=== PATIENT | male | born 1940 | race Caucasian/White ===

== ENCOUNTER 2018-11-08 13:52 | Inpatient (IN) ==
[2018-11-08 14:30] LABS: BASOPHILS # (AUTO) 0.02 10*3/UL; BASOPHILS % (AUTO) 0.2 % (0-1); EOSINOPHILS % (AUTO) 0.8 % (0-8); Hematocrit [HCT] 38.6 % (42.0-52.0); Hemoglobin [HGB] 11.6 g/dL (14.0-18.0); LYMPHOCYTES # (AUTO) 1.56 10*3/uL; MEAN CORPUSCULAR HEMOGLOBIN 29.5 PG (27-31); MEAN CORPUSCULAR HGB CONC 30.1 g/dL (33-37); MEAN CORPUSCULAR VOLUME 98.2 FL (80-90); MEAN PLATELET VOLUME 11.7 FL (7.4-12.2); MONOCYTES % (AUTO) 11.2 % (5-15); NEUTROPHILS # (AUTO) 9.38 10*3/UL; NEUTROPHILS % (AUTO) 75.1 % (50-80); RED BLOOD COUNT 3.93 10^6/uL (4.70-6.10)
[2018-11-08 14:34] LABS: BLOOD UREA NITROGEN 64 mg/dL (7-22); SERUM ALBUMIN 4.2 g/dL (3.5-4.8)
[2018-11-08 14:47] LABS: PLATELET MORPHOLOGY COMMENT NORMAL MORPHOLOGY (NORM); RBC MORPHOLOGY COMMENT SEE COMMENTS (NORM); WBC MORPHOLOGY COMMENT NORMAL MORPHOLOGY (NORM)
--- NOTE | 2018-11-08 15:57 | DI ---
CT HEAD SCAN WITHOUT IV CONTRAST, 11/08/2018 2:22 PM : Clinical History: Trauma. The patient is unable to hold still. Previous Exam: 07/31/2018. Technique: Scanned from the foramen magnum to vertex without IV contrast. Sagittal and coronal reform atted images generated. This was done is a 1 seconds volume acquisition because of patient motion. Th ere is still motion on the scans. Contrast Volume: None. 4th Ventricle: Normal. 3rd Ventricle: Mildly dilated, but normal for age. Lateral Ventricles: Mildly dilated, but normal for age. Sella: Normal size and normal pituitary gland. Cerebrum: There is no evidence of an acute intracranial hemorrhagic focus. There is no evidence of an acute bland infarct. There is no obvious small vessel ischemic disease. Cerebellum: Normal. No cerebellopontine angle mass. Normal cerebellar tonsillar position. Brainstem: Normal. Atrophy: Moderate cerebellar and cerebral atrophy. Extracerebral Mantles/Midline Shift: No extracerebral mantle or dural lesion. No midline shift. Sinuses: Since the previous study, the patient has developed mucosal thickening of the left maxillary sinus. Skull: Intact. There is prominence of the left mendosal suture but this was also visible on the previ ous study and has not changed. READIN. There is no evidence of an acute intracranial hemorrhagic focus. No acute bland infarct or signif icant small vessel ischemic disease noted. 2. Moderate cerebellar and cerebral atrophy. 3. There are motion artifacts even though the entire scan was performed in 1 second. Extremely small collection of subarachnoid blood could be missed. If the patient's clinical status declines, then a repeat scan would be recommended.
--- NOTE | 2018-11-08 17:26 | DI ---
LUMBAR SPINE SERIES, 11/08/2018 2:23 PM: Clinical History: Fall. Back pain. Previous Exam: None at this facility. Views: AP and lateral views are submitted. Comment: Due to the large body habitus of this patient, significant detail is lacking. Vertebral Bodies: Normal height and size. No compression fractures. However, subtle fractures such as in the transverse processes, could be missed. Disc Spaces: Disc space narrowing present at every lumbar level. Alignment: Normal. Pedicles: Normal. Apophyseal Joints: Normal apophyseal joints. SI Joints: Normal. Bone Density: Appears osteoporotic. Additional Findings: Status post ORIF of a left hip fracture. Readin. Technically limited study because of the patient's large body habitus. 2. No compression fractures are identified. The transverse processes are not visualized. 3. Status post ORIF of a left hip fracture.
--- NOTE | 2018-11-08 17:34 | DI ---
AP PELVIS and BILATERAL HIPS, 11/08/2018 2:22 PM : Clinical History: Injury. Trauma. The patient fell. Previous Exam: 07/31/2018. Hip Views: AP and frog lateral. AP Pelvis: Soft Tissues: Normal. Bony Pelvis: Intact. Sacrum and SI Joints: Normal. Symphysis Pubis: Normal. Bilateral Hips: Femoral Head/Neck Junctions: Status post ORIF of a fracture of the left femoral neck. The fracture amanda cency is still visible toward the lesser trochanter. No fracture of the right hip is seen although fi ne detail is lacking because of the patient's large body habitus. Acetabula: Non-dysplastic. No acetabular overcoverage. No retroversion. Hip Joint Spaces: Normal left hip joint space. There is narrowing superiorly in the right hip. Readin. Technically difficult examination due to the patient's large body habitus. Fine detail is lacking . 2. The pelvis is intact. 3. No definite fracture of the right hip is seen but there is joint space narrowing superiorly. Cons ider followup with a CT scan of the pelvis and hips if the patient has continued symptoms. 4. Status post ORIF of the fracture of the left hip. A fracture lucency is still visible toward the site of the lesser trochanter.
--- NOTE | 2018-11-08 18:56 | PDOC ---
HPI - History of Present Illness History of Present Illness: Very nice 78-year-old gentleman who resides at [facility] apparently according to the staff he was transferring from the walker to the chair and fell did not lose consciousness as per the ER doc plating of some pain in his hips and back and therefore was sent to the ER he has an indwelling Cisneros catheter Cisneros catheter for the last 3 years. He is back to his usual for according to his which is at the bedside and stated that after his hip fracture a started to get less and less mobile and weaker. He will be admitted for hydration and hopefully her reversal of his acute kidney injuries which is compared to last labs Past Medical History Tobacco Use: Former Smoker In the Past 12 Months, Have Used or Abuse Any of the Following Substance: None Medication / Allergies Home Medications: Home Medications Medication Instructions Recorded Confirmed acetazolamide ER 500 mg 500 mg PO BID #60 cap 05/20/18 11/08/18 capsule,extended release allopurinol 300 mg tablet 300 mg PO QDAY #90 tab 05/20/18 11/08/18 atorvastatin 10 mg tablet 10 mg PO QDAY #90 tab 05/20/18 11/08/18 escitalopram 10 mg tablet 10 mg PO QDAY #90 tab 05/20/18 11/08/18 levothyroxine 75 mcg capsule 75 mcg PO QDAY #90 cap 05/20/18 11/08/18 omeprazole 20 mg capsule,delayed 20 mg PO QDAY #90 cap 05/20/18 11/08/18 release Oxybutynin Chloride 5 mg PO DAILY 07/31/18 11/08/18 acetaminophen 325 mg capsule 650 mg PO Q4H PRN #1 cap 10/12/18 11/08/18 ascorbic acid (vitamin C) 500 mg 500 mg PO .QD #1 cap 10/12/18 11/08/18 capsule aspirin 81 mg tablet,delayed 81 mg PO QDAY #1 tab 10/12/18 11/08/18 release calcitriol 0.25 mcg capsule 0.25 mcg PO 3XW #1 cap 10/12/18 11/08/18 calcium carbonate-vitamin D3 600 1 cap PO QAM #1 cap 10/12/18 11/08/18 mg (1,500 mg)-400 unit capsule guaifenesin 400 mg tablet 800 mg PO BID #1 tab 10/12/18 11/08/18 insulin detemir (U-100) 100 5 unit SUBCUT QAM #3 ml 10/12/18 11/08/18 unit/mL (3 mL) subcutaneous pen oxycodone 10 mg tablet 10 mg PO Q6H PRN #1 tab 10/12/18 11/08/18 polyethylene glycol 3350 17 17 g PO QDAY #119 g 10/12/18 11/08/18 gram/dose oral powder sennosides 8.6 mg tablet 8.6 mg PO BID PRN #1 tab 10/12/18 11/08/18 trazodone 100 mg tablet 100 mg PO QHS #90 tab 10/12/18 11/08/18 bisacodyl 10 mg rectal suppository 10 mg SC ONCE PRN 10/18/18 11/08/18 bumetanide 2 mg tablet 2 mg PO BID tab 10/18/18 11/08/18 ferrous sulfate 325 mg (65 mg 325 mg PO QDAY tab 10/18/18 11/08/18 iron) tablet,delayed release lorazepam 0.5 mg tablet 0.5 mg PO BID tab 10/18/18 11/08/18 magnesium hydroxide 2,400 mg/10 mL 30 ml PO QHS PRN ml 10/18/18 11/08/18 oral suspension ondansetron HCl 4 mg tablet 4 mg PO Q4H PRN tab 10/18/18 11/08/18 potassium chloride ER 20 mEq 20 meq PO BID tab 10/18/18 11/08/18 tablet,extended release sodium phosphates 19 gram-7 118 ml SC ONCE PRN 10/18/18 11/08/18 gram/118 mL enema Spironolactone 50 mg PO BID 11/08/18 11/08/18 Allergies/Adverse Reactions: Allergies Allergy/AdvReac Type Severity Reaction Status Date / Time No Known Allergies Allergy Verified 10/18/18 09:53 Review of Systems - Review of Systems All Systems: Reviewed & No Additional Complaints Except as Stated - Respiratory Respiratory: DENIES: Negative System Review, Cough, Sputum, Dyspnea At Rest, Dyspnea with Exertion, Pleuritic Pain, Hemoptysis, Wheezing, Other, See HPI - Gastrointestinal Gastrointestinal / Abdominal: DENIES: Negative System Review, Nausea, Vomiting, Diarrhea, Constipation, Abdominal Pain, Bloody Stool, Poor Appetite, Heartburn, Regurgitation, Bloating, Lactose Intolerance, Melena, Bright Red Blood per Rectum, Other, See HPI Exam - Vitals Vital Signs: Vital Signs Temperature 96.4 F Temperature Source Temporal Artery Scan Pulse Rate [Pulse Oximeter 69 Right] Respiratory Rate 22 Blood Pressure [Left Arm] 107/55 Pulse Ox 88 Oxygen Delivery Method Room Air Height 5 ft 9 in Weight 245 lb - General General Appearance: No Acute Distress, Cooperative - Head Head Exam: Normal Inspection, Normocephalic, Atraumatic - Eye Eye Exam: POSITIVE: Normal Appearance, PERRL, EOMI, No Scleral Icterus - Respiratory Respiratory Exam: POSITIVE: Clear to Auscultation - Bilaterally, Breathing Non Labored, Normal To Percussion, Normal to Percussion and Palpation - Cardiovascular Cardiovascular Exam: POSITIVE: RRR, No Murmur, No Clicks, No Gallops, No Rubs, PMI Non-Displaced - GI/Abdominal GI/Abdominal Exam: POSITIVE: Normal Bowel Sounds, Non Tender, Non Distended, Soft, No Masses, No Hepatomegaly, No Splenomegaly, No Organomegaly - Extremities Extremities Exam: POSITIVE: No Clubbing Present, No Cyanosis Present, +1 Edema - Neurological Neurological Exam: POSITIVE: Alert, Moves All Extremities Equally Results - Labs CBC and BMP: 11/08/18 13:44 11/08/18 13:44 Assessment and Plan - Patient Problems (1) Chronic kidney disease Current Visit: No Status: Chronic Comment: Normal saline 75 hour we'll hold all nephrotoxic drugs ultrasound of his kidneys in a.m. Code(s): N18.9 - Chronic kidney disease, unspecified Qualifiers: (2) Dehydration Current Visit: Yes Status: Acute Code(s): E86.0 - Dehydration
--- NOTE | 2018-11-08 19:28 | PDOC ---
General Adult HPI - General Chief Complaint: Fall Stated Complaint: fall Date Seen by Provider: 11/08/18 Time Seen by Provider: 14:05 Source: POSITIVE: Patient, Spouse, RN/MD (From [facility]), EMS, custodial records, Old records Exam Limitations: POSITIVE: No limitations Nurse's Notes Reviewed & Considered: Yes EMS Report Reviewed & Considered: Verbal - History of Present Illness Initial Comment: The patient is a 78-year-old male from the [facility] halfway. The patient is on the regular halfway home floor; why he states that he does have some "early dementia. According to halfway staff, the patient was probably attempting to transfer himself from his walker to a chair and he fell. He was found by his roommate on his back. No observed loss of consciousness. custodial staff reports that he was complaining of pain to his hips, lower back and head. Patient may have struck the back of his head on the floor when he fell. states that the patient has an indwelling Baldwin catheter for urinary incontinence. History of diabetes mellitus, insulin-d ependent. states that the patient is presently in his usual state of mentation, and that he has been less active ever since he had a left hip fracture repaired in July 2018. custodial staff states that he is able to ambulate with a walker with assistance, but that he is essentially is bed and chair bound. custodial staff and report no fevers or chills. No vomiting or diarrhea. No focal sensory or motor changes. He has a DO NOT RESUSCITATE status. Have you received a tetanus shot in the past 10 years?: Unknown Body Location Affected: REPORTS: Head, Back, Other (Bilateral hip discomfort) Timing: REPORTS: Abrupt Duration: 1 hour Severity: Moderate Quality: REPORTS: "Pain" (Patient states that he "hurts all over". When asked, he does indicate discomfort in his lower back and posterior hips bilaterally and the back of his head where he might have struck the back of his head on the floor.) Context: REPORTS: Other (Apparently fell while attempting to transfer from walker to chair) Modifying Factors: improves with: Nothing Similar Symptoms Previously: No Recent Care Received: REPORTS: Denies Any Prior Injuries Related to Current Complaint?: No - Patient Home Medications Home Medications: Home Medications acetazolamide ER 500 mg capsule,extended release 500 mg PO BID #60 cap 05/20/18 allopurinol 300 mg tablet 300 mg PO QDAY #90 tab 05/20/18 atorvastatin 10 mg tablet 10 mg PO QDAY #90 tab 05/20/18 escitalopram 10 mg tablet 10 mg PO QDAY #90 tab 05/20/18 levothyroxine 75 mcg capsule 75 mcg PO QDAY #90 cap 05/20/18 omeprazole 20 mg capsule,delayed release 20 mg PO QDAY #90 cap 05/20/18 Oxybutynin Chloride 5 mg PO DAILY 07/31/18 acetaminophen 325 mg capsule 650 mg PO Q4H PRN #1 cap 10/12/18 ascorbic acid (vitamin C) 500 mg capsule 500 mg PO .QD #1 cap 10/12/18 aspirin 81 mg tablet,delayed release 81 mg PO QDAY #1 tab 10/12/18 calcitriol 0.25 mcg capsule 0.25 mcg PO 3XW #1 cap 10/12/18 calcium carbonate-vitamin D3 600 mg (1,500 mg)-400 unit capsule 1 cap PO QAM #1 cap 10/12/18 guaifenesin 400 mg tablet 800 mg PO BID #1 tab 10/12/18 insulin detemir (U-100) 100 unit/mL (3 mL) subcutaneous pen 5 unit SUBCUT QAM #3 ml 10/12/18 oxycodone 10 mg tablet 10 mg PO Q6H PRN #1 tab 10/12/18 polyethylene glycol 3350 17 gram/dose oral powder 17 g PO QDAY #119 g 10/12/18 sennosides 8.6 mg tablet 8.6 mg PO BID PRN #1 tab 10/12/18 trazodone 100 mg tablet 100 mg PO QHS #90 tab 10/12/18 bisacodyl 10 mg rectal suppository 10 mg NE ONCE PRN 10/18/18 bumetanide 2 mg tablet 2 mg PO BID tab 10/18/18 ferrous sulfate 325 mg (65 mg iron) tablet,delayed release 325 mg PO QDAY tab 10/18/18 lorazepam 0.5 mg tablet 0.5 mg PO BID tab 10/18/18 magnesium hydroxide 2,400 mg/10 mL oral suspension 30 ml PO QHS PRN ml 10/18/18 ondansetron HCl 4 mg tablet 4 mg PO Q4H PRN tab 10/18/18 potassium chloride ER 20 mEq tablet,extended release 20 meq PO BID tab 10/18/18 sodium phosphates 19 gram-7 gram/118 mL enema 118 ml NE ONCE PRN 10/18/18 Spironolactone 50 mg PO BID 11/08/18 - Patient Allergies Allergies/Adverse Reactions: Allergies Allergy/AdvReac Type Severity Reaction Status Date / Time No Known Allergies Allergy Verified 10/18/18 09:53 Past Medical History - heen HEENT History: Denies History Cardiovascular History: Hypertension, CHF, Hyperlipidemia, Other (please comment) Additional Cardiovasular History: murmur. unable to assess pt unsure Respiratory History: Home Oxygen Use, Other (please comment) Additional Respiratory History: Hypoxic respiratory failure Gastrointestinal History: GERD, GI Bleed Genitourinary History: Renal Disease, Incontinence, Other (please comment) Additional Genitourinary History: Chronic baldwin cath for overactive bladder and inmobility Endocrine History: Type 2 Diabetes (insulin), Hypothyroidism Musculoskeletal History: Arthritis Prosthesis or Implant: No Neurological History: Denies History Blood Disorders: Anemia Psychiatric History: Depression, Anxiety Disorders History of Sexually Transmitted Diseases: No Male Reproductive History: Denies History Cancer History: Denies History In Past Year Been Physically Harmed or Verbally Threatened: No History of MDRO: No History of Other Communicable Diseases: No Tobacco Use: Former Smoker In the Past 12 Months, Have Used or Abuse Any Substance: None Previous Surgical History: Yes Type / Date of Surgery: Cholecystectomy, hernia repair, ORIF LEFT HIP Significant Family History: Heart disease, Cancer, Diabetes Past Medical History Reviewed: Reviewed - No Changes ROS - Limitations ROS Limitations: Clinical Condition (Patient is a poor historian and states that he has been diagnosed with some dementia. states his mental condition, however, is unchanged from baseline.) Constitution: REPORTS: Denies Symptoms Cardiovascular: REPORTS: Denies Cardiac Symptoms Respiratory: REPORTS: Denies Resp Symptoms Neurological: REPORTS: Denies Neuro Symptoms Gastrointestinal: REPORTS: Denies GI Symptoms Endocrine: REPORTS: Denies Symptoms Musculoskeletal: REPORTS: Back Pain, Joint Pain (Hips) Genitourinary: REPORTS: Denies Symptoms Eyes: REPORTS: Denies Symptoms ENT: REPORTS: Denies Symptoms Skin: REPORTS: Rash (2 inguinal and scrotal area) Lympathic: REPORTS: Denies Lympathic Symptoms Immunologic: POSITIVE: Denies Symptoms Psychiatric: POSITIVE: Denies Psych Symptoms General Adult Exam - General Appearance General Appearance: POSITIVE: Cooperative, No Acute Distress. NEGATIVE: Alert (Patient is a poor historian. Not able to definitively localize any discomfort. Not oriented to date.), No Evidence of Trauma - HEENT HEENT: POSITIVE: Head Inspection Nml, Eyes Inspection Nml, Ears Inspection Nml, Nose Inspection Nml, Oral/Dental Inspect. Nml, Pharynx Inspect. Nml, PERRL, EOMI - Pupils Pupil Size: 3 mm: Bilateral (PERRLA) - Neck Neck: POSITIVE: Normal Inspection, Thyroid Normal - Respiratory Respiratory: POSITIVE: No Respiratory Distress, Breath Sounds Normal, Chest Non- Tender - Cardiovascular Cardiovascular: POSITIVE: Regular Rate & Rhythm, No Murmur, No Gallop, PMI Normal Peripheral Pulses: Radial (R): 2+, Radial (L): 2+, Dorsalis-pedis (R): 2+, Dorsalis-pedis (L): 2+ - Abdomen Abdomen: Soft: (All Quadrants), Normal Bowel Sounds: (All Quadrants), Denies Tenderness: (All Quadrants), No Splenomegaly: (All Quadrants), No Hepatomegaly: (All Quadrants), No Guarding: (All Quadrants), No Rebound: (All Quadrants), No Palpable Pulse: (All Quadrants), No Palpabale Mass: (All Quadrants), No D istention: (All Quadrants), No Rigidity: (All Quadrants) - Back Back: POSITIVE: Lumbosacral Tenderness (Complains of some discomfort on firm palpation lumbosacral area) - Skin Skin: POSITIVE: No Rash (Inguinal area) - Extremities Extremity: Non-Tender: (RUE), (LUE), Normal ROM: (All Extremities), Normal Inspection: (RUE), (LUE), Pelvis Stable: (All Extremities), Normal Tendon Exam: (All Extremities) Additional Extremities Details: Extremity examination is normal except patient does complain of some discomfort on firm palpation both hips, especially posteriorly. Range of motion passively is intact, but patient does complain of some discomfort with passive hip flexion bilaterally. There is no shortening or rotation of any of the extremities. - Neurological / Psychological Neurological: POSITIVE: Affect Apporpriate, sql programmer Normal As Tested, Motor Normal, Sensation Normal, Disoriented To Time. NEGATIVE: Oriented X3 (Not oriented to date) Reflexes: Patellar (R): 2+, Patellar (L): 2+ Images - Complete Complete: 1 - Area of described discomfort 2 - Area of described discomfort 3 - Complains of some localized scalp discomfort when asked General Adult Progress - Results Reviewed by me Xrays/CTs/US Reviewed by me: Yes Discussed with Radiologist: Yes Radiology Findings: CT scan of head without contrast shows no acute changes. X- ray of both hips shows that patient has had a hip pinning on the left; no acute fracture seen. X-ray of the lumbosacral spine shows no acute changes. Lab Results Reviewed by Me: Yes (BUN 64/creatinine 2.5; on 10/21/2018 BUN was 25/creatinine 1.4) Lab Results:: Laboratory Results 11/08/18 11/08/18 13:44 13:44 WBC 12.49 H RBC 3.93 L Hgb 11.6 L Hct 38.6 L MCV 98.2 H MCH 29.5 MCHC 30.1 L RDW Std Deviation 72.6 H RDW Coeff of Gigi 20.4 H Plt Count 196 MPV 11.7 Immature Gran % (Auto) 0.2 Neut % (Auto) 75.1 Lymph % (Auto) 12.5 Gila % (Auto) 11.2 Eos % (Auto) 0.8 Baso % (Auto) 0.2 Immature Gran # (Auto) 0.03 Neut # (Auto) 9.38 Lymph # (Auto) 1.56 Gila # (Auto) 1.40 H Eos # (Auto) 0.10 Baso # (Auto) 0.02 WBC Morphology Comment Normal morphology Plt Morphology Comment Normal morphology RBC Morph Comment See comments Sodium 142 Potassium 4.6 Chloride 96 L Carbon Dioxide 27 Anion Gap 19 BUN 64 H Creatinine 2.5 H Estimated GFR Rn Heart BUN/Creatinine Ratio 25.60 H Glucose 122 H Calculated Osmolality 312.0 H Calcium 10.2 Total Bilirubin 1.5 H AST 27 ALT < 6 L Alkaline Phosphatase 103 Total Creatine Kinase < 20 L Total Protein 8.3 H Albumin 4.2 Globulin 4.1 Albumin/Globulin Ratio 1.00 L CBC and BMP: 11/08/18 13:44 11/08/18 13:44 - Patient's Progress Pain Medication Addressed: POSITIVE: Not Applicable School/Work Release Addressed: POSITIVE: Not Applicable Re-Examine Time: 17:30 Re-Examine Comment: Patient resting comfortably. Results of radiologic and laboratory studies discussed with patient and with the [facility]. Patient is dehydrated and has prerenal azotemia. Hydrated with a liter of normal saline while in the emergency room. Case was discussed with Dr. Montalvo, hospitalist, and patient is admitted for hydration and further evaluation and treatment. Status: POSITIVE: Unchanged, Re-Examined Antibiotics Given: No - Consult Consult (If Yes, Name of Consulting MD & Time Called): Yes (Dr. Montalvo, hospitalist, [id number]) Consulting MD will see pt:: POSITIVE: In ED, [facility] [place] Admit Counseled: POSITIVE: Patient, Family, RE: Lab Results, RE: Radiology Results, RE: DX, RE: Need for F/U Patient Care Time - Estimated PCT Patient Care Time (In Minutes): 55 Vital Signs - Recent Vital Signs Vital Signs: Vital Signs (Last 8 hours) Temp Pulse Resp BP Pulse Ox 11/08/18 13:52 96.4 F L 69 22 107/55 88 - VS Reviewed Vital Signs Reviewed: Yes Discharge Clinical Impression: Dehydration, Renal failure, acute Discharge Disposition: Admit to Inpatient Condition: Fair Patient Problem(s) Reviewed: Yes Patient Instructions Given at Discharge: Laceration (ED) Follow Up With: NONE,NONE [Primary Care Provider] - Date Decision to Admit to Inpatient: 11/08/18 Time Decision to Admit to Inpatient: 17:30
[2018-11-08] MEDS ORDERED: LIDOCAINE HCL 2 % 10 ML JELLY URO-JECT TOPICAL PRN (21:19)
[2018-11-08] MEDS ORDERED: ACETAMINOPHEN 325 MG TABLET PO PRN ×2 (21:19)
[2018-11-08] MEDS ORDERED: DOCUSATE 100 MG CAPSULE PO PRN (21:19)
[2018-11-08] MEDS ORDERED: CALCIUM CARBONATE 500 MG (TUMS) CHEWABLE TABLET PO PRN (21:19)
[2018-11-08] MEDS ORDERED: LIDOCAINE W/ SODIUM BICARB 0.5 ML SYR SUBD PRN (21:19)
[2018-11-08] MEDS ORDERED: MORPHINE SULFATE 2 MG/1 ML IVP PRN (21:19)
[2018-11-08] MEDS ORDERED: ONDANSETRON 4 MG/2 ML VIAL IVP PRN (21:19)
[2018-11-08] MEDS ORDERED: HEPARIN 5000 UNIT/1 ML SUBCUT SCH (21:30)
[2018-11-08] MEDS: OXYBUTYNIN CHLORIDE 5 MG PO SCH (22:31)
[2018-11-08] MEDS: AcetaZOLAMIDE Tab 250 MG TABLET PO SCH (22:35)
[2018-11-08] MEDS: Sodium Chloride 0.9% 1,000 ML IV SCH (22:35)
[2018-11-08] MEDS: LORazepam 1 MG TABLET PO SCH (22:35)
[2018-11-08] MEDS ORDERED: ASPIRIN 325 MG TABLET PO ONE (23:39)
[2018-11-09] MEDS: Heparin Drip 25,000 UNIT/500 ML BAG IV SCH (00:42)
[2018-11-09 04:33] LABS: BASOPHILS # (AUTO) 0.02 10*3/UL; BASOPHILS % (AUTO) 0.2 % (0-1); EOSINOPHILS # (AUTO) 0.17 10*3/UL; EOSINOPHILS % (AUTO) 1.5 % (0-8); Hematocrit [HCT] 36.8 % (42.0-52.0); Hemoglobin [HGB] 10.6 g/dL (14.0-18.0); LYMPHOCYTES # (AUTO) 1.48 10*3/uL; MEAN CORPUSCULAR HGB CONC 28.8 g/dL (33-37); MEAN CORPUSCULAR VOLUME 100.8 FL (80-90); MONOCYTES # (AUTO) 1.27 10*3/UL (0.3-0.8); MONOCYTES % (AUTO) 11.5 % (5-15); NEUTROPHILS # (AUTO) 8.03 10*3/UL; RED BLOOD COUNT 3.65 10^6/uL (4.70-6.10)
[2018-11-09 04:40] LABS: BLOOD UREA NITROGEN 62 mg/dL (7-22); SERUM ALBUMIN 3.5 g/dL (3.5-4.8)
[2018-11-09] MEDS: LEVOTHYROXINE 75 MCG TABLET PO SCH (04:44)
[2018-11-09 04:54] LABS: PLATELET MORPHOLOGY COMMENT NORMAL MORPHOLOGY (NORM); RBC MORPHOLOGY COMMENT SEE COMMENTS (NORM); WBC MORPHOLOGY COMMENT NORMAL MORPHOLOGY (NORM)
[2018-11-09] MEDS: ASPIRIN EC 81 MG TABLET PO SCH (09:10)
[2018-11-09] MEDS: LORazepam 1 MG TABLET PO SCH ×2 (09:10→20:31)
[2018-11-09] MEDS: AcetaZOLAMIDE Tab 250 MG TABLET PO SCH ×2 (09:10→20:31)
[2018-11-09] MEDS: ESCITALOPRAM 10 MG TABLET PO SCH (09:10)
[2018-11-09] MEDS: oxyCODONE IR Tab 5 MG TAB PO PRN (09:11)
[2018-11-09] MEDS: Oxybutynin ER Tab 5 MG TAB PO SCH (09:28)
[2018-11-09] MEDS: OXYBUTYNIN CHLORIDE 5 MG PO SCH (10:23)
--- NOTE | 2018-11-09 10:33 | PDOC(PROG) ---
Interval History: Patient is comfortable in no chest pain nausea vomiting Objective : Data - Labs CBC and BMP: 11/09/18 04:12 11/09/18 04:12 Objective : Exam - General General Appearance: Cooperative - Respiratory Respiratory Exam: Clear to Auscultation - Bilaterally, Breathing Non Labored, Normal To Percussion, Normal to Percussion and Palpation - Cardiovascular Cardiovascular Exam: RRR, No Murmur, No Clicks, No Gallops, No Rubs, PMI Non-Di splaced - GI/Abdominal GI/Abdominal Exam: Normal Bowel Sounds, Non Tender, Non Distended, Soft, No Masses, No Hepatomegaly, No Splenomegaly, No Organomegaly - Extremities Extremities Exam: +1 Edema Assessment and Plan - Patient Problems (1) Non-STEMI (non-ST elevated myocardial infarction) Current Visit: Yes Status: Acute Comment: Elevated troponins discussed with and patient not interested in catheter or going to [place] would like treated medically. Plus with his creatinine that would probably put the patient on dialysis. We will treat with 72 hours of heparin drip we cannot use Lovenox in this patient because of his renal failure and we will add the beta melissa and shirin if blood pressure tolerates at this point the 80s cannot be used because in acute renal failure Code(s): I21.4 - Non-ST elevation (NSTEMI) myocardial infarction (2) Chronic kidney disease Current Visit: No Status: Chronic Comment: Mild hydration creatinine and is better down to 2 BUN is down 2 points as well we'll continue normal saline at 75 an hour hold all nephrotoxic drugs Code(s): N18.9 - Chronic kidney disease, unspecified Qualifiers: (3) Dehydration Current Visit: Yes Status: Acute Comment: Continue normal saline 75 an hour Code(s): E86.0 - Dehydration
[2018-11-09] MEDS: Sodium Chloride 0.9% 1,000 ML IV SCH ×2 (11:10→23:41)
--- NOTE | 2018-11-09 15:11 | DI ---
BILATERAL RENAL ULTRASOUND, 11/09/2018 7:00 AM: Clinical History: Acute kidney injury. Previous Exam: None at this facility. Technique: Scans are performed through both kidneys in multiple projections. Renal Size: Right Kidney: Cannot be measured. Due to bowel gas, right kidney not visualized. Left Kidney: 121 mm. Renal Mass: Normal left kidney. Renal Perfusion: Normal perfusion to left kidney. Hydronephrosis: No hydronephrosis in left kidney. Hydroureter: No left hydroureter. Bladder: Appearance: Normal. Ureteral Jets: Neither ureteral jet visualized. Pre Void Volume: 180 mL. Post Void Volume: Patient did not void. Readin. Normal left kidney. The bladder is normal. The patient did not void. 2. The right kidney is not visualized due to bowel gas and body habitus.
[2018-11-10] MEDS: LEVOTHYROXINE 75 MCG TABLET PO SCH (05:01)
[2018-11-10 06:05] LABS: BLOOD UREA NITROGEN 55 mg/dL (7-22); BUN/CREATININE RATIO 34.37 (6-20); SERUM ALBUMIN 3.2 g/dL (3.5-4.8)
[2018-11-10] MEDS: AcetaZOLAMIDE Tab 250 MG TABLET PO SCH ×2 (08:52→20:18)
[2018-11-10] MEDS: ESCITALOPRAM 10 MG TABLET PO SCH (08:52)
[2018-11-10] MEDS: LORazepam 1 MG TABLET PO SCH ×2 (08:52→20:18)
[2018-11-10] MEDS: ASPIRIN EC 81 MG TABLET PO SCH (08:52)
[2018-11-10] MEDS: Oxybutynin ER Tab 5 MG TAB PO SCH (08:52)
--- NOTE | 2018-11-10 09:57 | PDOC(PROG) ---
Interval History: He is feeling much more lively today he is smiling and talking more I told him that his BUN and creatinine are even and improved in the morning yesterday. Denies chest pain nausea vomiting Objective : Data - Labs CBC and BMP: 11/09/18 04:12 11/10/18 05:48 Objective : Exam - Respiratory Respiratory Exam: Clear to Auscultation - Bilaterally, Breathing Non Labored, Normal To Percussion, Normal to Percussion and Palpation - Cardiovascular Cardiovascular Exam: RRR, Systolic Murmur - GI/Abdominal GI/Abdominal Exam: Normal Bowel Sounds, Non Tender, Non Distended, Soft, No Masses, No Hepatomegaly, No Splenomegaly, No Organomegaly - Extremities Extremities Exam: No Clubbing Present, No Edema Present, No Cyanosis Present Assessment and Plan - Patient Problems (1) Non-STEMI (non-ST elevated myocardial infarction) Current Visit: Yes Status: Acute Comment: Continue heparin drip for a total 72 hours once his creatinine is improved he can maybe start an Ramon and beta blockers if blood pressure is improving. Again visited with the patient did only wanted medical therapy or other tests done Code(s): I21.4 - Non-ST elevation (NSTEMI) myocardial infarction (2) Chronic kidney disease Current Visit: No Status: Chronic Comment: Continue hydration hopefully get his kidneys even better [facility] Code(s): N18.9 - Chronic kidney disease, unspecified Qualifiers: (3) Dehydration Current Visit: Yes Status: Acute Comment: Continue IV fluids Code(s): E86.0 - Dehydration
[2018-11-10] MEDS: Sodium Chloride 0.9% 1,000 ML IV SCH (12:31)
[2018-11-10] MEDS: CALCITRIOL 0.25 MCG CAPSULE PO SCH (15:11)
[2018-11-11] MEDS: Sodium Chloride 0.9% 1,000 ML IV SCH ×3 (01:47→19:15)
[2018-11-11] MEDS: LEVOTHYROXINE 75 MCG TABLET PO SCH (04:40)
[2018-11-11 05:40] LABS: BASOPHILS # (AUTO) 0.01 10*3/UL; BASOPHILS % (AUTO) 0.1 % (0-1); EOSINOPHILS # (AUTO) 0.18 10*3/UL; EOSINOPHILS % (AUTO) 2.3 % (0-8); Hematocrit [HCT] 32.3 % (42.0-52.0); Hemoglobin [HGB] 9.3 g/dL (14.0-18.0); LYMPHOCYTES # (AUTO) 1.16 10*3/uL; MEAN CORPUSCULAR HEMOGLOBIN 29.6 PG (27-31); MEAN CORPUSCULAR HGB CONC 28.8 g/dL (33-37); MEAN CORPUSCULAR VOLUME 102.9 FL (80-90); MEAN PLATELET VOLUME 10.7 FL (7.4-12.2); MONOCYTES # (AUTO) 1.02 10*3/UL (0.3-0.8); MONOCYTES % (AUTO) 13.2 % (5-15); NEUTROPHILS # (AUTO) 5.32 10*3/UL; NEUTROPHILS % (AUTO) 69.2 % (50-80); RED BLOOD COUNT 3.14 10^6/uL (4.70-6.10)
[2018-11-11 05:50] LABS: PLATELET MORPHOLOGY COMMENT NORMAL MORPHOLOGY (NORM); RBC MORPHOLOGY COMMENT SEE COMMENTS (NORM); WBC MORPHOLOGY COMMENT NORMAL MORPHOLOGY (NORM)
[2018-11-11 05:51] LABS: BLOOD UREA NITROGEN 49 mg/dL (7-22); BUN/CREATININE RATIO 37.69 (6-20)
[2018-11-11] MEDS: AcetaZOLAMIDE Tab 250 MG TABLET PO SCH ×2 (07:59→20:28)
[2018-11-11] MEDS: LORazepam 1 MG TABLET PO SCH ×3 (07:59→21:00)
[2018-11-11] MEDS: Oxybutynin ER Tab 5 MG TAB PO SCH (08:00)
[2018-11-11] MEDS: ASPIRIN EC 81 MG TABLET PO SCH (08:00)
[2018-11-11] MEDS: ESCITALOPRAM 10 MG TABLET PO SCH (08:00)
[2018-11-11] MEDS: Heparin Drip 25,000 UNIT/500 ML BAG IV SCH (10:04)
--- NOTE | 2018-11-11 13:38 | PDOC(PROG) ---
Date of Service: 11/11/18 Time of Service: 13:30 Interval History: Subjective Patient is denying complaint, He was laying in bed does not appear in distress. Apparently he fell at the [facility] care and that's why he ended up here in the hospital. The patient is denying chest pain, shortness of breath or nausea. Objective : Data - Labs CBC and BMP: 11/11/18 05:40 11/11/18 05:40 Objective : Exam - General General Appearance: No Acute Distress, Cooperative, Morbidly Obese - Head Head Exam: Normal Inspection - Eye Eye Exam: Normal Appearance - ENT ENT Exam: Normal Exam - Neck Neck Exam: Normal Inspection - Respiratory Respiratory Exam: Clear to Auscultation - Bilaterally - Cardiovascular Cardiovascular Exam: Systolic Murmur - GI/Abdominal GI/Abdominal Exam: Normal Bowel Sounds, Non Tender, Non Distended, Soft, No Organomegaly - Rectal Rectal Exam: Deferred - External Exam: Deferred - Extremities Extremities Exam: Normal Inspection - Back Back Exam: Normal Inspection - Neurological Neurological Exam: Alert, CN II-XII Intact, No Facial Droop, Speech Intact / Clear, Moves All Extremities Equally Additional Neurological Exam Details: Patient could not tell me the day or the month or the year. he could not tell me where exactly where he is. - Psychiatric Psychiatric Exam: Normal Affect - Integumentary Integumentary Exam: Normal Color Assessment and Plan - Patient Problems (1) Dehydration Current Visit: Yes Status: Acute Comment: I think acute renal failure is probably secondary to diuretic this was stopped it is improving I think we'll cut back on his fluid. Likely back to the senior care tomorrow Code(s): E86.0 - Dehydration (2) Non-STEMI (non-ST elevated myocardial infarction) Current Visit: Yes Status: Acute Comment: He denied chest pain, shortness of breath or nausea. Elevated troponin may be secondary to the acute on chronic renal failure. He may have had acute coronary syndrome though as he has a history of diabetes. The plan was for him to continue heparin for 3 days I think we'll continue the same plan. Continue with aspirin. I'm not sure he can tolerate additional medication. Will see what's his blood pressure numbers tomorrow then will decide if he can tolerate additional medication. Code(s): I21.4 - Non-ST elevation (NSTEMI) myocardial infarction (3) Diabetes 1.5, managed as type 2 Current Visit: No Status: Chronic Comment: He was on levimer at the [facility] but only 5 units, blood sugar seems to be acceptable will watch. Code(s): E13.9 - Other specified diabetes mellitus without complications (4) Hypothyroidism (acquired) Current Visit: No Status: Chronic Comment: same med. Code(s): E03.9 - Hypothyroidism, unspecified
[2018-11-11] MEDS: oxyCODONE IR Tab 5 MG TAB PO PRN (20:30)
[2018-11-11] MEDS ORDERED: ATORVASTATIN 10 MG TABLET PO SCH (21:00)
[2018-11-12] MEDS: LEVOTHYROXINE 75 MCG TABLET PO SCH (04:59)
[2018-11-12 06:53] LABS: BLOOD UREA NITROGEN 38 mg/dL (7-22)
--- NOTE | 2018-11-12 07:38 | DCSUMMARY ---
Hospitalization Summary Admit Date: 11/08/2018 Discharge Date: 11/12/18 Hospital Course: Discharge diagnoses 1. Acute renal failure improved 2. History of diabetes 3. History of hyperlipidemia 4. History of depression 5. History of hypothyroidism 6. History of congestive heart failure 7. History of anemia 8. History of urinary incontinence has a permanent catheter 9. Mildly elevated troponin question secondary to congestive heart failure or non-ST DE 10. Likely dementia Hospital course This is 78 years old male with medical history significant for history of diabetes, history of congestive heart failure on diuretics, hypothyroidism, depression and likely dementia, has a permanent Cisneros catheter who apparently fell at the sn[facility] and was brought to the hospital for evaluation. Evaluation was negative for new fractures but it that was found that he has acute renal failure and hence the admission. He was admitted to the hospital by Dr. Montalvo please see his note. His troponin was minimally elevated Dr. Montalvo put him on heparin for possibility of NSTMI. Patient however did not have chest pain and no shortness of breath. The case also was discussed with the family they did not want intervention only medical treatment so he was treated medically. I saw him later on during his hospital stay he was denying complaint but I noticed that he has dementia. He could not tolerate beta melissa or lisinopril because of bradycardia and the presence of renal failure. on the day of discharge creatinine improved he was denying symptoms in terms of chest or shortness of breath. we thought That he could be discharged back to the [facility]. I did modify his diuretic treatment that he was on before admission. I did cut back on the spirinolactone to 50 mg once a day from 50 mg twice a day. We discontinued the bumetanide. I did speak with Dr. Moscoso to let him know about changes. Patient did have an echocardiogram however I don't have the results. Discharge instruction Diet regular Activity as tolerated medication please see snf discharge orders Condition at discharge was stable for discharge Exam - Vitals Vital Signs: Vital Signs Temperature 98.2 F Temperature Source Oral Pulse Rate [Apical] 72 Pulse Rate [Pulse Oximeter 58 Right] Pulse Rate 57 Respiratory Rate 18 Blood Pressure [Right Arm] 119/55 Blood Pressure [Left Arm] 107/48 Blood Pressure 115/50 Pulse Ox 92 Oxygen Flow Rate 1 Oxygen Delivery Method Nasal Cannula Height 5 ft 9 in Weight 247 lb 1.6 oz - General General Appearance: No Acute Distress, Cooperative, Obese - Head Head Exam: Normal Inspection, Atraumatic - Eye Eye Exam: POSITIVE: Normal Appearance - ENT ENT Exam: POSITIVE: Normal Exam - Neck Neck Exam: Normal Inspection - Respiratory Respiratory Exam: POSITIVE: Clear to Auscultation - Bilaterally - Cardiovascular Cardiovascular Exam: POSITIVE: RRR - GI/Abdominal GI/Abdominal Exam: POSITIVE: Normal Bowel Sounds, Non Tender, Non Distended, Soft, No Organomegaly - Rectal Rectal Exam: POSITIVE: Deferred - External Exam: POSITIVE: Deferred - Extremities Additional Extremities Exam Details: No edema with his chronic dermatitic changes present. - Back Back Exam: POSITIVE: Normal Inspection - Neurological Additional Neurological Exam Details: He does not know the day of the month or the year. He doesn't know why he is in the hospital. - Psychiatric Psychiatric Exam: POSITIVE: Normal Affect - Integumentary Integumentary Exam: POSITIVE: Normal Color Patient Problems - Patient Problem List (1) Dehydration Status: Acute Code(s): E86.0 - Dehydration Category: Medical (2) Non-STEMI (non-ST elevated myocardial infarction) Status: Acute Code(s): I21.4 - Non-ST elevation (NSTEMI) myocardial infarction Category: Medical (3) Diabetes 1.5, managed as type 2 Status: Chronic Comment: Continue at present with Levemir 18 units QHS. Will ask Home Health for blood sugar review and education of to management of blood sugar testing Code(s): E13.9 - Other specified diabetes mellitus without complications Category: Medical (4) Hypothyroidism (acquired) Status: Chronic Code(s): E03.9 - Hypothyroidism, unspecified Category: Medical
[2018-11-12] MEDS: ESCITALOPRAM 10 MG TABLET PO SCH (08:53)
[2018-11-12] MEDS: ASPIRIN EC 81 MG TABLET PO SCH (08:54)
[2018-11-12] MEDS: AcetaZOLAMIDE Tab 250 MG TABLET PO SCH (08:54)
[2018-11-12] MEDS: LORazepam 1 MG TABLET PO SCH (08:54)
[2018-11-12] MEDS ORDERED: ALLOPURINOL 300 MG TABLET PO SCH (09:00)
[2018-11-12] MEDS ORDERED: OMEPRAZOLE 20 MG CAPSULE PO SCH (09:00)
[2018-11-12] MEDS: Oxybutynin ER Tab 5 MG TAB PO SCH (10:43)
[2018-11-12 12:27] VITALS: BP 128/53; RESP 16; TEMP 98.4; O2SAT 96
[2018-11-12] MEDS: CALCITRIOL 0.25 MCG CAPSULE PO SCH (13:50)
[2018-11-12] MEDS: oxyCODONE IR Tab 5 MG TAB PO PRN (13:54)
--- NOTE | 2018-11-12 15:07 | EKG ---
[address] [address] Measurements Intervals [place] Rate: 71 P: 88 ND: 318 QRS: 56 QRSD: 142 T: -5 QT: 433 QTc: 455 Interpretive Statements SINUS RHYTHM WITH FIRST DEGREE AV BLOCK RIGHT BUNDLE BRANCH BLOCK PROBABLE ANTERIOR MYOCARDIAL INFARCTION OF INDETERMINATE AGE Compared to ECG 07/31/2018 05:22:16 First degree AV block now present Right bundle-branch block now present Myocardial infarct finding now present Electronically Signed On 11-15-18 18:17:12 MDT by Kirk Bucio [email or web address]
== END 2018-11-12 14:13 | DRG 682 ==
LOC: ER 13:52 → MED/SURG 20:07
PROVIDERS: ADMIT Internal Medicine; ATTEND Internal Medicine

== ENCOUNTER 2018-12-01 13:42 | Inpatient (IN) ==
[2018-12-01] MEDS ORDERED: Sodium Chloride 0.9% 1,000 ML PRIMARY IV ONE (13:59)
[2018-12-01 14:21] LABS: VENOUS PH 7.4 (7.32-7.42)
--- NOTE | 2018-12-01 14:21 | EKG ---
[address] [address] Measurements Intervals [place] Rate: 75 P: -88 HI: 234 QRS: 67 QRSD: 134 T: -5 QT: 412 QTc: 441 Interpretive Statements ECTOPIC ATRIAL RHYTHM WITH FIRST DEGREE AV BLOCK WITH OCCASIONAL VENTRICULAR PREMATURE COMPLEXES INDETERMINATE AXIS RIGHT BUNDLE BRANCH BLOCK ANTERIOR- LATERAL MYOCARDIAL INFARCTION PROBABLY OLD Compared to ECG 11/08/2018 23:37:17 Ectopic atrial rhythm now present Ventricular premature complex(es) now present Indeterminate axis now present Sinus rhythm no longer present Myocardial infarct finding still present Electronically Signed On 12-01-18 15:38:04 MDT by Kirk Bucio [email or web address]
[2018-12-01 14:31] LABS: BASOPHILS # (AUTO) 0.03 10*3/UL; BASOPHILS % (AUTO) 0.3 % (0-1); EOSINOPHILS # (AUTO) 0.09 10*3/UL; EOSINOPHILS % (AUTO) 0.8 % (0-8); Hemoglobin [HGB] 12.5 g/dL (14.0-18.0); LYMPHOCYTES # (AUTO) 1.38 10*3/uL; MEAN CORPUSCULAR HEMOGLOBIN 29.1 PG (27-31); MEAN CORPUSCULAR HGB CONC 29.8 g/dL (33-37); MEAN CORPUSCULAR VOLUME 97.9 FL (80-90); MEAN PLATELET VOLUME 11.6 FL (7.4-12.2); MONOCYTES # (AUTO) 1.05 10*3/UL (0.3-0.8); MONOCYTES % (AUTO) 9.7 % (5-15); NEUTROPHILS # (AUTO) 8.27 10*3/UL; NEUTROPHILS % (AUTO) 76.2 % (50-80); RED BLOOD COUNT 4.29 10^6/uL (4.70-6.10)
[2018-12-01 14:33] LABS: PLATELET MORPHOLOGY COMMENT NORMAL MORPHOLOGY (NORM); RBC MORPHOLOGY COMMENT NORMAL MORPHOLOGY (NORM); WBC MORPHOLOGY COMMENT NORMAL MORPHOLOGY (NORM)
--- NOTE | 2018-12-01 14:36 | PDOC ---
General Adult HPI - General Chief Complaint: Genitourinary Complaint Stated Complaint: blood in urine Date Seen by Provider: 12/01/18 Time Seen by Provider: 13:55 Source: POSITIVE: intermediate records, Other (Family member) Exam Limitations: POSITIVE: No limitations Nurse's Notes Reviewed & Considered: Yes - History of Present Illness Initial Comment: The patient is a 78-year-old male who is brought to the emergency department from the [facility] with complaints of blood in his urine, increased lethargy and confusion. The patient does have a chronic indwelling urinary catheter and has had previous urinary tract infections off and on over the past year. For the past several days he has had increased blood in the catheter bag. In addition he has had decreased oral intake, increased combativeness and confusion at the half-way. Urinalysis sent here earlier today shows greater than 100 WBCs, greater than 100 RBCs and many bacteria. Culture is pending. Previous culture from October grew out Pseudomonas as well as Serratia marcescens. The patient does have underlying dementia making direct questioning difficult. Information is gathered from half-way records and his family member who accompanies him here to the emergency department. Have you received a tetanus shot in the past 10 years?: Unknown - Patient Home Medications Home Medications: Home Medications acetazolamide ER 500 mg capsule,extended release 500 mg PO BID #60 cap 05/20/18 allopurinol 300 mg tablet 300 mg PO QDAY #90 tab 05/20/18 atorvastatin 10 mg tablet 10 mg PO QDAY #90 tab 05/20/18 escitalopram 10 mg tablet 10 mg PO QDAY #90 tab 05/20/18 levothyroxine 75 mcg capsule 75 mcg PO QDAY #90 cap 05/20/18 omeprazole 20 mg capsule,delayed release 20 mg PO QDAY #90 cap 05/20/18 Oxybutynin Chloride 5 mg PO DAILY 07/31/18 acetaminophen 325 mg capsule 650 mg PO Q4H PRN #1 cap 10/12/18 ascorbic acid (vitamin C) 500 mg capsule 500 mg PO .QD #1 cap 10/12/18 aspirin 81 mg tablet,delayed release 81 mg PO QDAY #1 tab 10/12/18 calcitriol 0.25 mcg capsule 0.25 mcg PO 3XW #1 cap 10/12/18 calcium carbonate-vitamin D3 600 mg (1,500 mg)-400 unit capsule 1 cap PO QAM #1 cap 10/12/18 guaifenesin 400 mg tablet 800 mg PO BID #1 tab 10/12/18 insulin detemir (U-100) 100 unit/mL (3 mL) subcutaneous pen 5 unit SUBCUT QAM #3 ml 10/12/18 oxycodone 10 mg tablet 10 mg PO Q6H PRN #1 tab 10/12/18 polyethylene glycol 3350 17 gram/dose oral powder 17 g PO QDAY #119 g 10/12/18 sennosides 8.6 mg tablet 8.6 mg PO BID PRN #1 tab 10/12/18 trazodone 100 mg tablet 100 mg PO QHS #90 tab 10/12/18 bisacodyl 10 mg rectal suppository 10 mg [place] ONCE PRN 10/18/18 bumetanide 2 mg tablet 2 mg PO BID tab 10/18/18 ferrous sulfate 325 mg (65 mg iron) tablet,delayed release 325 mg PO QDAY tab 10/18/18 lorazepam 0.5 mg tablet 0.5 mg PO BID tab 10/18/18 magnesium hydroxide 2,400 mg/10 mL oral suspension 30 ml PO QHS PRN ml 10/18/18 ondansetron HCl 4 mg tablet 4 mg PO Q4H PRN tab 10/18/18 potassium chloride ER 20 mEq tablet,extended release 20 meq PO BID tab 10/18/18 sodium phosphates 19 gram-7 gram/118 mL enema 118 ml [place] ONCE PRN 10/18/18 Spironolactone 50 mg PO BID 11/08/18 - Patient Allergies Allergies/Adverse Reactions: Allergies Allergy/AdvReac Type Severity Reaction Status Date / Time No Known Allergies Allergy Verified 12/01/18 13:58 Past Medical History - heen HEENT History: Denies History Cardiovascular History: Hypertension, CHF, Hyperlipidemia, Other (please comment) Additional Cardiovasular History: murmur. unable to assess pt unsure Respiratory History: Home Oxygen Use, Other (please comment) Additional Respiratory History: Hypoxic respiratory failure Gastrointestinal History: GERD, GI Bleed Genitourinary History: Renal Disease, Incontinence, Other (please comment) Additional Genitourinary History: Chronic baldwin cath for overactive bladder and inmobility Endocrine History: Type 2 Diabetes (insulin), Hypothyroidism Musculoskeletal History: Arthritis Prosthesis or Implant: No Neurological History: Denies History Blood Disorders: Anemia Psychiatric History: Depression, Anxiety Disorders History of Sexually Transmitted Diseases: No Cancer History: Denies History In Past Year Been Physically Harmed or Verbally Threatened: No History of MDRO: No History of Other Communicable Diseases: No Tobacco Use: Former Smoker In the Past 12 Months, Have Used or Abuse Any Substance: None Previous Surgical History: Yes Type / Date of Surgery: Cholecystectomy, hernia repair, ORIF LEFT HIP Significant Family History: Heart disease, Cancer, Diabetes Past Medical History Reviewed: Reviewed - No Changes ROS - Limitations ROS Limitations: Other (please comment) (Patient has significant underlying dementia) Constitution: DENIES: Fever Respiratory: DENIES: Cough Non Productive, Cough Productive Gastrointestinal: REPORTS: Other (Decreased appetite). DENIES: Vomitting, Diarrhea Endocrine: REPORTS: Other (More lethargic) Genitourinary: REPORTS: Hematuria (Blood noted in the catheter bag) General Adult Exam - General Appearance General Appearance: POSITIVE: Other (The patient does not appear to be in any acute distress. He does not answer any of the questions that I ask him.) - HEENT HEENT: POSITIVE: Head Inspection Nml, Eyes Inspection Nml, Ears Inspection Nml, Nose Inspection Nml, Pharynx Inspect. Nml, Dry Mucous Membranes - Neck Neck: POSITIVE: Normal Inspection. NEGATIVE: Lymphadenopathy - Respiratory Respiratory: POSITIVE: No Respiratory Distress, Breath Sounds Normal - Cardiovascular Cardiovascular: POSITIVE: Regular Rate & Rhythm, No Murmur Peripheral Pulses: Dorsalis-pedis (R): 2+, Dorsalis-pedis (L): 2+ - Abdomen Abdomen: Soft: (All Quadrants), Denies Tenderness: (All Quadrants), No Distention: (All Quadrants) Additional Abdominal Details: He does have an indwelling urinary catheter, there is a fair amount of blood in the urine - Skin Skin: POSITIVE: Normal Color, No Rash - Extremities Additional Extremities Details: He does have a dressing in place in the right lower extremity, some edema noted in both legs - Neurological / Psychological Neurological: POSITIVE: Other (Difficult to assess an adequate neurological exam) General Adult Progress - Results Reviewed by me Lab Results Reviewed by Me: Yes Lab Results:: Laboratory Results 12/01/18 12/01/18 12/01/18 14:07 14:07 14:07 WBC 10.85 H RBC 4.29 L Hgb 12.5 L Hct 42.0 MCV 97.9 H MCH 29.1 MCHC 29.8 L RDW Std Deviation 65.3 H RDW Coeff of Gigi 18.6 H Plt Count 208 MPV 11.6 Immature Gran % (Auto) 0.3 Neut % (Auto) 76.2 Lymph % (Auto) 12.7 Villalba % (Auto) 9.7 Eos % (Auto) 0.8 Baso % (Auto) 0.3 Immature Gran # (Auto) 0.03 Neut # (Auto) 8.27 Lymph # (Auto) 1.38 Villalba # (Auto) 1.05 H Eos # (Auto) 0.09 Baso # (Auto) 0.03 WBC Morphology Comment Normal morphology Plt Morphology Comment Normal morphology RBC Morph Comment Normal morphology VBG pH VBG pCO2 VBG HCO3 VBG Base Excess Sodium 139 Potassium 4.5 Chloride 100 Carbon Dioxide 23 Anion Gap 16 BUN 63 H Creatinine 2.0 H Estimated GFR [facility] BUN/Creatinine Ratio 31.50 H Glucose 121 H Calculated Osmolality 306.0 H Lactic Acid 1.2 Calcium 10.5 Magnesium 2.9 H Total Bilirubin 0.9 AST 23 ALT < 6 L Alkaline Phosphatase 94 Troponin I C-Reactive Protein 1.1 H NT-Pro-B Natriuret Pep 2280 H Total Protein 7.5 Albumin 4.0 Globulin 3.5 Albumin/Globulin Ratio 1.10 L 12/01/18 12/01/18 14:07 14:14 WBC RBC Hgb Hct MCV MCH MCHC RDW Std Deviation RDW Coeff of Gigi Plt Count MPV Immature Gran % (Auto) Neut % (Auto) Lymph % (Auto) Villalba % (Auto) Eos % (Auto) Baso % (Auto) Immature Gran # (Auto) Neut # (Auto) Lymph # (Auto) Villalba # (Auto) Eos # (Auto) Baso # (Auto) WBC Morphology Comment Plt Morphology Comment RBC Morph Comment VBG pH 7.40 VBG pCO2 39 L VBG HCO3 24 VBG Base Excess -1 Sodium Potassium Chloride Carbon Dioxide Anion Gap BUN Creatinine Estimated GFR BUN/Creatinine Ratio Glucose Calculated Osmolality Lactic Acid Calcium Magnesium Total Bilirubin AST ALT Alkaline Phosphatase Troponin I 0.081 H C-Reactive Protein NT-Pro-B Natriuret Pep Total Protein Albumin Globulin Albumin/Globulin Ratio CBC and BMP: 12/01/18 14:07 12/01/18 14:07 EKG Interpreted/Reviewed By Me:: Yes EKG Interpretation:: POSITIVE: Other (EKG shows normal sinus rhythm with right bundle branch block, occasional PVC, no acute changes) - Patient's Progress MDM / ED Course: Blood cultures and lactate were obtained with initial IV start. His initial venous blood gas reveals a pH of 7.4 with a PCO2 of 38. He did receive a 1 L bolus of normal saline. Urinalysis from earlier today showed greater than 100 RBCs, greater than 100 WBCs and many bacteria and a urine culture is pending. Blood work reveals a mildly elevated white count and CRP. His hemoglobin is 12.5 which is up from his previous hospitalization. BUN is 63 with a creatinine of 2.0. His creatinine upon discharge from the hospital earlier this month was down to 1.0. It was 1.5 one week after his hospitalization. His lactate is normal. His EKG showed a normal sinus rhythm with occasional PVC, right bundle branch block, no acute changes. His troponin did come back slightly elevated at 0.8. His troponin has been persistently elevated and was in the same range during his previous hospitalization. This was thought to be possibly related to his congestive heart failure and renal failure. The patient's had elected not to pursue any invasive evaluation or treatment with the rock star. The remainder of his blood work is essentially unremarkable. After administrations of fluids the patient was somewhat more alert and awake. I did discuss current findings with his who is his primary medical decision maker. I did discuss treatment options and she preferred to have the patient admitted here in the hospital here for IV fluids and IV antibiotics and generalized treatment. She did confirm that the patient's CODE STATUS is DNR/DNI and that she does not think he would be a good candidate for any invasive medical procedures. The patient did receive 2 g of Rocephin IV. I did discuss the patient with Dr. Gill was agreed to admit patient for further care. - Consult Counseled: POSITIVE: Patient, Family, RE: Lab Results, RE: DX Patient Care Time - Estimated PCT Patient Care Time (In Minutes): 30 Vital Signs - Recent Vital Signs Vital Signs: Vital Signs (Last 8 hours) Temp Pulse Resp BP Pulse Ox 12/01/18 14:24 97.4 F 77 18 135/116 90 - VS Reviewed Vital Signs Reviewed: Yes Discharge Clinical Impression: Renal failure, acute on chronic, Dehydration, UTI (urinary tract infection), Elevated troponin, CHF (congestive heart failure), Hematuria, Anemia Discharge Disposition: Admit to Inpatient Condition: Fair Patient Problem(s) Reviewed: Yes Follow Up With: PRAVEEN VICENTE [Primary Care Provider] - Date Decision to Admit to Inpatient: 12/01/18 Time Decision to Admit to Inpatient: 15:35
[2018-12-01] MEDS ORDERED: cefTRIAXone Inj 2 GM in Sodium Chloride 0.9% 100 ML IV ONE (14:42)
[2018-12-01 14:47] LABS: BLOOD UREA NITROGEN 63 mg/dL (7-22)
[2018-12-01] MEDS ORDERED: ACETAMINOPHEN 325 MG TABLET PO PRN (15:33)
[2018-12-01] MEDS ORDERED: ONDANSETRON 4 MG/2 ML VIAL IVP PRN (15:33)
[2018-12-01] MEDS ORDERED: DOCUSATE 100 MG CAPSULE PO PRN (15:33)
[2018-12-01] MEDS ORDERED: CALCIUM CARBONATE 500 MG (TUMS) CHEWABLE TABLET PO PRN (15:33)
[2018-12-01] MEDS ORDERED: LIDOCAINE W/ SODIUM BICARB 0.5 ML SYR SUBD PRN (15:33)
[2018-12-01] MEDS ORDERED: cefTAZidime Inj 2 GM in Sodium Chloride 0.9% 100 ML IV SCH (20:30)
[2018-12-01] MEDS ORDERED: cefTRIAXone Inj 2 GM in Sodium Chloride 0.9% 100 ML IV SCH (20:30)
--- NOTE | 2018-12-01 20:42 | PDOC ---
HPI - History of Present Illness Date of Service: 12/01/18 Time of Service: 20:31 Chief Complaint: Hematuria History of Present Illness: Patient was seen and evaluated earlier, discussed with at bedside. This is a 78-year-old male who has what appears to be advanced dementia who was over from [facility] with gross hematuria. He's had chronic Baldwin catheterization for the last 3 years and only due to incontinence and the patient cannot provide me any information at all about his current condition. He is not oriented to self, place, time, or situation. His provides the history. She is not the best historian and does not understand all of his medical problems. My review of the medical record, notable note, and discussion with the patient's , this is a patient who has had a significant decline in his health over the last 6 months. He had a fall back in July and fractured his left hip, presumably had open reduction and internal fixation in [place], [place], then did rehabilitation work at [facility], and transferred to [facility]. He has been diagnosed with dementia, but the states that the recent diagnosis. He has underlying chronic kidney disease, again has had chronic baldwin catheterization for the past three years. He has medications that suggest renal replacement, though his creatinine in June,, was 1.4. He recently had a UTI due to Pseudomonas. He also recently had a short hospital admission in which he was diagnosed with acute on chronic renal failure. No exacerbating factors with today's presentation could be identified. There was no report of any recent baldwin catheter replacements. No recent traumas or falls reported. I discussed with the patient's how aggressive we should care considering his advanced dementia. With review of his medications, I think we stopped several centrally acting agents, and treated the patient with fluids, and antibiotics on an initial attempt to improve his condition, perhaps we can get a better understanding of his underlying mental status. However I also said that if he does not show marked improvement in the next 48 hours, that treatment of primary symptoms of pain and discomfort with no further treatment for chronic medical issues would also be very appropriate for this patient. He reportedly is not drinking at the [facility] and not eating. He has several decubitus ulcers, stage II in the gluteal region. Present on admission. He also has right lower extremity tibial ulcers that appear clean and do not appear infected currently. His catheter does show gross hematuria present but I do not see any clots. Past Medical History Medical History: 1. chronic kidney disease. 2. dementia. 3. venous stasis ulcers. 4. history of left hip fracture s/p ORIF. 5. HTN. 6. aortic stenosis, mild to moderate. 7. DMII. 8. failure to thrive. 9. reportedly CHF. 10. chronic hypoxemic respiratory failure with 2 LPM oxygen requirement. 11. chronic back pain per the patient's . Surgical History: 1. Hx hernia repair. 2. cholecysectomy. 3. left hip ORIF Pertinent Family History: significant for pancreatic cancer per the patient's . Past Social History: does not currently smoke tobacco or drink alcohol. 42 years. has three healthy biologic children. used to live in [place] with his . Tobacco Use: Former Smoker In the Past 12 Months, Have Used or Abuse Any of the Following Substance: None Alcohol Use: None Medication / Allergies Home Medications: Home Medications Medication Instructions Recorded Confirmed acetazolamide ER 500 mg 500 mg PO BID #60 cap 05/20/18 12/01/18 capsule,extended release allopurinol 300 mg tablet 300 mg PO QDAY #90 tab 05/20/18 12/01/18 atorvastatin 10 mg tablet 10 mg PO QDAY #90 tab 05/20/18 12/01/18 escitalopram 10 mg tablet 10 mg PO QDAY #90 tab 05/20/18 12/01/18 levothyroxine 75 mcg capsule 75 mcg PO QDAY #90 cap 05/20/18 12/01/18 omeprazole 20 mg capsule,delayed 20 mg PO QDAY #90 cap 05/20/18 12/01/18 release Oxybutynin Chloride 5 mg PO DAILY 07/31/18 12/01/18 acetaminophen 325 mg capsule 650 mg PO Q4H PRN #1 cap 10/12/18 12/01/18 ascorbic acid (vitamin C) 500 mg 500 mg PO .QD #1 cap 10/12/18 12/01/18 capsule aspirin 81 mg tablet,delayed 81 mg PO QDAY #1 tab 10/12/18 12/01/18 release calcitriol 0.25 mcg capsule 0.25 mcg PO 3XW #1 cap 10/12/18 12/01/18 calcium carbonate-vitamin D3 600 1 cap PO QAM #1 cap 10/12/18 12/01/18 mg (1,500 mg)-400 unit capsule guaifenesin 400 mg tablet 800 mg PO BID #1 tab 10/12/18 12/01/18 insulin detemir (U-100) 100 5 unit SUBCUT QAM #3 ml 10/12/18 12/01/18 unit/mL (3 mL) subcutaneous pen oxycodone 10 mg tablet 10 mg PO Q6H PRN #1 tab 10/12/18 12/01/18 polyethylene glycol 3350 17 17 g PO QDAY #119 g 10/12/18 12/01/18 gram/dose oral powder sennosides 8.6 mg tablet 8.6 mg PO BID PRN #1 tab 10/12/18 12/01/18 trazodone 100 mg tablet 100 mg PO QHS #90 tab 10/12/18 12/01/18 bisacodyl 10 mg rectal suppository 10 mg OK ONCE PRN 10/18/18 12/01/18 bumetanide 2 mg tablet 2 mg PO BID tab 10/18/18 12/01/18 ferrous sulfate 325 mg (65 mg 325 mg PO QDAY tab 10/18/18 12/01/18 iron) tablet,delayed release lorazepam 0.5 mg tablet 0.5 mg PO BID tab 10/18/18 12/01/18 magnesium hydroxide 2,400 mg/10 mL 30 ml PO QHS PRN ml 10/18/18 12/01/18 oral suspension ondansetron HCl 4 mg tablet 4 mg PO Q4H PRN tab 10/18/18 12/01/18 potassium chloride ER 20 mEq 20 meq PO BID tab 10/18/18 12/01/18 tablet,extended release sodium phosphates 19 gram-7 118 ml OK ONCE PRN 10/18/18 12/01/18 gram/118 mL enema Spironolactone 50 mg PO BID 11/08/18 12/01/18 Allergies/Adverse Reactions: Allergies Allergy/AdvReac Type Severity Reaction Status Date / Time No Known Allergies Allergy Verified 12/01/18 13:58 Review of Systems - Review of Systems ROS Unobtainable: Due to Mental Status (the patient has advanced dementia and I cannot obtain a review of systems.) Exam - Vitals Vital Signs: Vital Signs Temperature 97.8 F Temperature Source Temporal Artery Scan Pulse Rate [Pulse Oximeter] 72 Respiratory Rate 20 Blood Pressure [Left Arm] 126/67 Pulse Ox 94 Oxygen Delivery Method Room Air Height 5 ft 9 in Weight 245 lb - General General Appearance: No Acute Distress, Disheveled, Obese - Head Head Exam: Normocephalic, Atraumatic Additional Head Exam Details: matted eyes, - Eye Eye Exam: POSITIVE: No Scleral Icterus Eye: Other: Bilateral Eye (matted eyes, dry) - ENT ENT Exam: POSITIVE: Mucous Membranes Dry - Neck Neck Exam: Normal Inspection, No Tenderness, No Lymphadenopathy, No Thyromegaly, JVP is not Raised - Respiratory Respiratory Exam: POSITIVE: Clear to Auscultation - Bilaterally, Breathing Non Labored - Cardiovascular Cardiovascular Exam: POSITIVE: RRR, No Gallops, No Rubs, Systolic Murmur, No JVD - GI/Abdominal GI/Abdominal Exam: POSITIVE: Normal Bowel Sounds, Non Tender, Non Distended, Soft - Rectal Rectal Exam: POSITIVE: Deferred - External Exam: POSITIVE: Deferred Exam: POSITIVE: Baldwin Catheter in Place (gross hematuria noted.) - Extremities Extremities Exam: POSITIVE: No Clubbing Present, No Edema Present, No Cyanosis Present, Dosalis Pedis Pulses - Stong & Regular Additional Extremities Exam Details: has what appears to be tibial venous stasis ulcers, multiple, on right kidd, clean, not infected, no cellulitis, hemosiderin coloring. - Neurological Neurological Exam: POSITIVE: Alert, No Facial Droop, Speech Intact / Clear, Moves All Extremities Equally, Altered - Psychiatric Psychiatric Exam: POSITIVE: Anxious - Integumentary Integumentary Exam: POSITIVE: Dry Additional Integumentary Exam Details: several stage II gluteal ulcers present on admission Results - Labs CBC and BMP: 12/01/18 14:07 12/01/18 14:07 Additional Lab Results: Laboratory Results 12/01/18 12/01/18 12/01/18 14:07 14:07 14:07 WBC 10.85 H RBC 4.29 L Hgb 12.5 L Hct 42.0 MCV 97.9 H MCH 29.1 MCHC 29.8 L RDW Std Deviation 65.3 H RDW Coeff of Gigi 18.6 H Plt Count 208 MPV 11.6 Immature Gran % (Auto) 0.3 Neut % (Auto) 76.2 Lymph % (Auto) 12.7 Harney % (Auto) 9.7 Eos % (Auto) 0.8 Baso % (Auto) 0.3 Immature Gran # (Auto) 0.03 Neut # (Auto) 8.27 Lymph # (Auto) 1.38 Harney # (Auto) 1.05 H Eos # (Auto) 0.09 Baso # (Auto) 0.03 WBC Morphology Comment Normal morphology Plt Morphology Comment Normal morphology RBC Morph Comment Normal morphology VBG pH VBG pCO2 VBG HCO3 VBG Base Excess Sodium 139 Potassium 4.5 Chloride 100 Carbon Dioxide 23 Anion Gap 16 BUN 63 H Creatinine 2.0 H Estimated GFR Seasonal Package Handler BUN/Creatinine Ratio 31.50 H Glucose 121 H Calculated Osmolality 306.0 H Lactic Acid 1.2 Calcium 10.5 Magnesium 2.9 H Total Bilirubin 0.9 AST 23 ALT < 6 L Alkaline Phosphatase 94 Troponin I C-Reactive Protein 1.1 H NT-Pro-B Natriuret Pep 2280 H Total Protein 7.5 Albumin 4.0 Globulin 3.5 Albumin/Globulin Ratio 1.10 L 12/01/18 12/01/18 14:07 14:14 WBC RBC Hgb Hct MCV MCH MCHC RDW Std Deviation RDW Coeff of Gigi Plt Count MPV Immature Gran % (Auto) Neut % (Auto) Lymph % (Auto) Harney % (Auto) Eos % (Auto) Baso % (Auto) Immature Gran # (Auto) Neut # (Auto) Lymph # (Auto) Harney # (Auto) Eos # (Auto) Baso # (Auto) WBC Morphology Comment Plt Morphology Comment RBC Morph Comment VBG pH 7.40 VBG pCO2 39 L VBG HCO3 24 VBG Base Excess -1 Sodium Potassium Chloride Carbon Dioxide Anion Gap BUN Creatinine Estimated GFR BUN/Creatinine Ratio Glucose Calculated Osmolality Lactic Acid Calcium Magnesium Total Bilirubin AST ALT Alkaline Phosphatase Troponin I 0.081 H C-Reactive Protein NT-Pro-B Natriuret Pep Total Protein Albumin Globulin Albumin/Globulin Ratio - EKG Data -: EKG Interpreted by Me EKG Shows Normal: Sinus Rhythm - EKG Data EKG Interpretation: Other (first degree AV block, question PVC) - Imaging Status: Image Pending (I am ordering a CT of the abdomen and pelvis without contrast) Assessment and Plan - Patient Problems (1) Gross hematuria Current Visit: Yes Status: Acute Code(s): R31.0 - Gross hematuria (2) Elevated troponin Current Visit: Yes Status: Chronic Code(s): R74.8 - Abnormal levels of other serum enzymes (3) Hypertension Current Visit: Yes Status: Chronic Code(s): I10 - Essential (primary) hypertension Qualifiers: Hypertension type: essential hypertension Qualified Code(s): I10 - Essenti al (primary) hypertension (4) Hypothyroidism (acquired) Current Visit: Yes Status: Chronic Code(s): E03.9 - Hypothyroidism, unspecified (5) Renal failure, acute on chronic Current Visit: Yes Status: Acute Code(s): N17.9 - Acute kidney failure, unspecified; N18.9 - Chronic kidney disease, unspecified Qualifiers: Acute renal failure type: unspecified Chronic kidney disease stage: stage 4 (severe) Qualified Code(s): N17.9 - Acute kidney failure, unspecified; N18.4 - Chronic kidney disease, stage 4 (severe) (6) UTI (urinary tract infection) Current Visit: Yes Status: Acute Comment: present on admission Code(s): N39.0 - Urinary tract infection, site not specified Qualifiers: Urinary tract infection type: catheter-associated UTI Indwelling urinary catheter type: indwelling urethral catheter Encounter type: initial encounter Qualified Code(s): T83.511A - Infection and inflammatory reaction due to indwelling urethral catheter, initial encounter; N39.0 - Urinary tract infection, site not specified (7) Dementia Current Visit: Yes Status: Acute Code(s): F03.90 - Unspecified dementia without behavioral disturbance Qualifiers: Dementia type: Alzheimer's disease Alzheimer's disease onset: late-onset Dementia behavioral disturbance: without behavioral disturbance Qualified Code(s): G30.1 - Alzheimer's disease with late onset; F02.80 - Dementia in other diseases classified elsewhere without behavioral disturbance (8) Diabetes mellitus type 2 in obese Current Visit: Yes Status: Acute Code(s): E11.69 - Type 2 diabetes mellitus with other specified complication; E66.9 - Obesity, unspecified - Assessment / Plan Additional Assessment/Plan Details: admit the patient. I had a candid discussion with the patient's . The patient has had a severe decline in medical conditions and overall quality of life. The patient's told me she was not interested in extensive work up with specialists and did not want a transfer to a different hospital. She would like antibiotics and fluids and continued assessment. IF the patient does not show improvement in conditions, the consideration for treatment of primary symptoms of pain and discomfort is a possible option. stop several [employer] acting agents that can worsen dementia and AMS reduce allopurinol to renal dosing, no more than 100 mg daily check iron panel. stop PO iron as it causes constipation and can be very confusing, also leading to multiple medications. if necessary, replace IV IV fluids get UA and culture given Pseudomonas on prior urine culture, j luis, but renally dose labs in AM if clot retention, may need to consider bladder irrigation. get CT of abdomen and pelvis to look for stones as cause of hematuria and although without contrast, look for hydronephrosis or other indicators of potential renal obstruction or infection (may be difficult to see stranding without contrast) blood cultures drawn and are pending. Continue insulin, sliding scale insulin and blood sugar checks DO NOT RESUSITATE confirmed. prognosis is grim. at a minimum, less than 6 months to live, would be reasonable hospice candidate and I discussed this with the patient's . She will consider. I tried to express to the patient it would not surprise me if the patient during this hospital stay from these multiple comorbidities noted above.
[2018-12-01] MEDS: cefTAZidime Inj 2 GM in Sodium Chloride 0.9% 100 ML IV SCH (21:01)
[2018-12-01] MEDS: Sodium Chloride 0.9% 1,000 ML PRIMARY IV SCH (21:01)
[2018-12-01] MEDS: Senna Tab 8.6 MG TAB PO SCH ×2 (21:01→22:51)
[2018-12-01] MEDS ORDERED: LORazepam 2 MG/1 ML VIAL IVP ONE (21:55)
[2018-12-01] MEDS: ACETAMINOPHEN 500 MG TABLET PO SCH (22:58)
--- NOTE | 2018-12-01 23:20 | DI ---
EXAM: CT Abdomen and Pelvis Without Intravenous Contrast CLINICAL HISTORY: ITS.REASON gross hematuria and acute and chronic renal failur Physician Notes: Tech Comments: TECHNIQUE: Axial computed tomography images of the abdomen and pelvis without intravenous contrast. COMPARISON: No relevant prior studies available. FINDINGS: Lung bases: Subsegmental atelectasis at the posterior lower lobes. Heart: Cardiomegaly. No significant pericardial effusion. ABDOMEN: Liver: Unremarkable. Gallbladder and bile ducts: Unremarkable. No calcified stones. No ductal dilation. Pancreas: Unremarkable. No ductal dilation. Spleen: Unremarkable. No splenomegaly. Adrenals: Unremarkable. No mass. Kidneys and ureters: Aorta, liver, spleen, pancreas, and gallbladder are unremarkable. Bilateral renal cysts. Largest cyst arises from the upper pole of the right kidney measuring up to 10.3 cm. No obstructive uropathy. Stomach and bowel: Fluid within nondistended loops of small bowel and within stomach without bowel wall thickening or surrounding inflammation can be normal or can be seen with gastroenteritis in the right clinical setting. PELVIS: Appendix: No appendicitis, inflammatory changes of bowel or bowel obstruction. Bladder: Unremarkable. No stones. Reproductive: Unremarkable as visualized. ABDOMEN and PELVIS: Intraperitoneal space: No free fluid. No free air. Bones/joints: No acute fracture. No dislocation. Soft tissues: Unremarkable. Vasculature: Atherosclerotic calcifications of the aortic valve. No abdominal aortic aneurysm. Lymph nodes: Unremarkable. No enlarged lymph nodes. IMPRESSION: Fluid within nondistended loops of small bowel and within stomach without bowel wall thickening or surrounding inflammation can be normal or can be seen with gastroenteritis in the right clinical setting. No other acute or inflammatory disease or bowel obstruction.
[2018-12-02] MEDS: LEVOTHYROXINE 75 MCG TABLET PO SCH (04:52)
[2018-12-02] MEDS: Sodium Chloride 0.9% 1,000 ML PRIMARY IV SCH ×3 (05:03→23:30)
[2018-12-02 06:01] LABS: BASOPHILS # (AUTO) 0.02 10*3/UL; BASOPHILS % (AUTO) 0.2 % (0-1); EOSINOPHILS # (AUTO) 0.12 10*3/UL; EOSINOPHILS % (AUTO) 1.3 % (0-8); Hematocrit [HCT] 38.8 % (42.0-52.0); Hemoglobin [HGB] 11.6 g/dL (14.0-18.0); LYMPHOCYTES # (AUTO) 1.64 10*3/uL; MEAN CORPUSCULAR HGB CONC 29.9 g/dL (33-37); MEAN PLATELET VOLUME 10.8 FL (7.4-12.2); MONOCYTES % (AUTO) 10.7 % (5-15); NEUTROPHILS # (AUTO) 6.51 10*3/UL
[2018-12-02 06:03] LABS: PLATELET MORPHOLOGY COMMENT NORMAL MORPHOLOGY (NORM); RBC MORPHOLOGY COMMENT NORMAL MORPHOLOGY (NORM); WBC MORPHOLOGY COMMENT NORMAL MORPHOLOGY (NORM)
[2018-12-02 06:07] LABS: BLOOD UREA NITROGEN 57 mg/dL (7-22); BUN/CREATININE RATIO 35.62 (6-20); SERUM ALBUMIN 3.2 g/dL (3.5-4.8)
[2018-12-02] MEDS: ALLOPURINOL 100 MG TABLET PO SCH (08:54)
[2018-12-02] MEDS: ASCORBIC ACID Chewable 500 MG TABLET PO SCH (08:54)
[2018-12-02] MEDS: Calcium/Vit D 600mg/400u Tab 1 TAB TABLET PO SCH (08:54)
[2018-12-02] MEDS: Insulin Detemir 300unit/3ml Flexpen SUBCUT SCH (08:55)
[2018-12-02] MEDS: ASPIRIN EC 81 MG TABLET PO SCH (08:55)
[2018-12-02] MEDS: Senna Tab 8.6 MG TAB PO SCH ×2 (13:35→20:15)
[2018-12-02] MEDS: ACETAMINOPHEN 500 MG TABLET PO SCH ×2 (13:35→20:14)
[2018-12-02] MEDS: cefTAZidime Inj 2 GM in Sodium Chloride 0.9% 100 ML IV SCH (20:15)
--- NOTE | 2018-12-02 20:24 | PDOC(PROG) ---
Date of Service: 12/02/18 Time of Service: 20:19 Interval History: Patient seen, evaluated earlier today. more alert. knew who he was. not oriented to place, time, or situation. stated he had pain in abdomen but did not grimace or have any pain response with palpation. Objective : Data - Labs CBC and BMP: 12/02/18 04:59 12/02/18 04:59 Additional Lab Results: 12/02/18 12/02/18 12/02/18 04:59 04:59 04:59 Iron 67 TIBC 299 % Saturation 22.41 Total Bilirubin 0.5 AST 21 ALT 18 L Alkaline Phosphatase 72 Total Protein 6.2 Albumin 3.2 L Globulin 3.0 Albumin/Globulin Ratio 1.00 L Vitamin D 25-Hydroxy 36.0 - Imaging CT Scan Status: Image Reviewed by Me (I looked at the CT scan. there appear to be renal cysts on the right kidney. I read the radiology report and reviewed the report.) Objective : Exam - General General Appearance: No Acute Distress, Cooperative Additional General Exam Details: Vital Signs - Last Taken Temperature 98.3 F 12/02/18 17:00 Pulse Rate 88 12/02/18 17:00 Respiratory Rate 20 12/02/18 17:00 Blood Pressure 121/46 12/02/18 17:00 Pulse Ox 95 12/02/18 17:00 - Eye Eye Exam: No Scleral Icterus - Neck Neck Exam: JVP is not Raised - Respiratory Respiratory Exam: Clear to Auscultation - Bilaterally, Breathing Non Labored - Cardiovascular Cardiovascular Exam: RRR, No Clicks, No Gallops, No Rubs, Systolic Murmur, No JVD - GI/Abdominal GI/Abdominal Exam: Normal Bowel Sounds, Non Tender, Non Distended, Soft - Extremities Extremities Exam: No Clubbing Present, No Edema Present, No Cyanosis Present Additional Extremities Exam Details: right lower extremity dressed over venous stasis ulcers. - Neurological Neurological Exam: Alert, No Facial Droop, Speech Intact / Clear, Moves All Extremities Equally, Altered Assessment and Plan - Patient Problems (1) UTI (urinary tract infection) Current Visit: Yes Status: Acute Code(s): N39.0 - Urinary tract infection, site not specified Qualifiers: Urinary tract infection type: catheter-associated UTI Indwelling urinary catheter type: indwelling urethral catheter Encounter type: initial encounter Qualified Code(s): T83.511A - Infection and inflammatory reaction due to indwelling urethral catheter, initial encounter; N39.0 - Urinary tract infection, site not specified (2) Renal failure, acute on chronic Current Visit: Yes Status: Acute Code(s): N17.9 - Acute kidney failure, unspecified; N18.9 - Chronic kidney disease, unspecified Qualifiers: Acute renal failure type: unspecified Chronic kidney disease stage: stage 3 (moderate) Qualified Code(s): N17.9 - Acute kidney failure, unspecified; N18.3 - Chronic kidney disease, stage 3 (moderate) (3) Gross hematuria Current Visit: Yes Status: Acute Code(s): R31.0 - Gross hematuria (4) Elevated troponin Current Visit: Yes Status: Chronic Code(s): R74.8 - Abnormal levels of other serum enzymes (5) Hypertension Current Visit: Yes Status: Chronic Code(s): I10 - Essential (primary) hypertension Qualifiers: Hypertension type: essential hypertension Qualified Code(s): I10 - Essential (primary) hypertension (6) Hypothyroidism (acquired) Current Visit: Yes Status: Chronic Code(s): E03.9 - Hypothyroidism, unspecified (7) Dementia Current Visit: Yes Status: Acute Code(s): F03.90 - Unspecified dementia without behavioral disturbance Qualifiers: Dementia type: Alzheimer's disease Alzheimer's disease onset: late-onset Dementia behavioral disturbance: without behavioral disturbance Qualified Code(s): G30.1 - Alzheimer's disease with late onset; F02.80 - Dementia in other diseases classified elsewhere without behavioral disturbance (8) Diabetes mellitus type 2 in obese Current Visit: Yes Status: Acute Code(s): E11.69 - Type 2 diabetes mellitus with other specified complication; E66.9 - Obesity, unspecified - Assessment / Plan Additional Assessment/Plan Details: continue fortaz, day #2, IV fluids labs in AM unfortunately, despite order, UA and culture not collected yesterday. will try to get iron normal, stop PO iron at this time. try to get records from [place]. was able to confirm with that the patient was in SNF in [place] prior to moving to [place] last May for a year and a half. She stated it was for edema. strongly suspect advanced dementia with delirium in the setting of UTI, present on admission, and polypharmacy.
[2018-12-02 20:39] LABS: BASOPHILS # (AUTO) 0.01 10*3/UL; BASOPHILS % (AUTO) 0.1 % (0-1); EOSINOPHILS # (AUTO) 0.02 10*3/UL; EOSINOPHILS % (AUTO) 0.2 % (0-8); Hematocrit [HCT] 35.2 % (42.0-52.0); LYMPHOCYTES # (AUTO) 1.06 10*3/uL; MEAN CORPUSCULAR HEMOGLOBIN 30.1 PG (27-31); MEAN CORPUSCULAR HGB CONC 31.3 g/dL (33-37); MEAN CORPUSCULAR VOLUME 96.2 FL (80-90); MEAN PLATELET VOLUME 11.6 FL (7.4-12.2); MONOCYTES # (AUTO) 0.85 10*3/UL (0.3-0.8); MONOCYTES % (AUTO) 8.7 % (5-15); NEUTROPHILS # (AUTO) 7.77 10*3/UL; NEUTROPHILS % (AUTO) 79.9 % (50-80); PLATELET MORPHOLOGY COMMENT NORMAL MORPHOLOGY (NORM); RBC MORPHOLOGY COMMENT NORMAL MORPHOLOGY (NORM); RED BLOOD COUNT 3.66 10^6/uL (4.70-6.10); WBC MORPHOLOGY COMMENT NORMAL MORPHOLOGY (NORM)
[2018-12-02 21:54] LABS: BILIRUBIN,URINE NEGATIVE (NEG); CLARITY,URINE CLEAR (CLEAR); COLOR,URINE YELLOW (Y); GLUCOSE, URINE (UA) NEGATIVE (NEG); OCCULT BLOOD,URINE Trace-lysed (NEG); PROTEIN,URINE NEGATIVE (NEG)
[2018-12-02 22:02] LABS: RBC,URINE 0-1 /hpf; URINE SAMPLE TYPE VOIDED SPECIMEN; WBC,URINE 0-3
[2018-12-03] MEDS: LEVOTHYROXINE 75 MCG TABLET PO SCH (04:47)
[2018-12-03 05:35] LABS: BLOOD UREA NITROGEN 44 mg/dL (7-22)
[2018-12-03 06:38] VITALS: BP 139/57; RESP 20; TEMP 97.5; O2SAT 95
[2018-12-03] MEDS ORDERED: CALCITRIOL 0.25 MCG CAPSULE PO SCH (09:00)
[2018-12-03] MEDS: Sodium Chloride 0.9% 1,000 ML PRIMARY IV SCH (09:09)
[2018-12-03] MEDS: Insulin Detemir 300unit/3ml Flexpen SUBCUT SCH (09:12)
[2018-12-03] MEDS: ASCORBIC ACID Chewable 500 MG TABLET PO SCH (09:12)
[2018-12-03] MEDS: ACETAMINOPHEN 500 MG TABLET PO SCH (09:13)
[2018-12-03] MEDS: Calcium/Vit D 600mg/400u Tab 1 TAB TABLET PO SCH (09:13)
[2018-12-03] MEDS: Senna Tab 8.6 MG TAB PO SCH (09:14)
[2018-12-03] MEDS: ASPIRIN EC 81 MG TABLET PO SCH (09:14)
[2018-12-03] MEDS: ALLOPURINOL 100 MG TABLET PO SCH (09:14)
--- NOTE | 2018-12-03 11:06 | DCSUMMARY ---
Hospitalization Summary Admit Date: 12/01/2018 Discharge Date: 12/03/18 Primary Diagnosis:: altered mental status with dementia Hospital Course: This is a 78-year-old male that resides in [facility] who was sent over with the finding of gross hematuria. Upon evaluation here, urinalysis was not done prior to the start of antibiotics. But urinalysis showed negative bacteria when we could get the study. He's never had a fever here. We did do a scan of the abdomen and pelvis with no contrast and found a very large right renal cyst, but outside of that no obstructive symptoms, no stone, no hydronephrosis, and no explanation for the gross hematuria. The hematuria resolved spontaneously. This is a patient who's had chronic Cisneros catheterization. I try to find records to determine why this has been the case, but could not get any records from [place]. Stop several medications including oxybutynin, benzodiazepines, and other medications that can cause confusion and worsening delirium in the setting of dementia and altered mental status in the setting of dementia. Within 24 hours, his mental status significantly improved and he went from not even knowing his name to at least being able to state that he was "Bernard". He really could not have a coherent sentence otherwise in terms of thought process and never could track the conversation, and was not alert to place, time, or situation. He often refused his medications, and obviously has advanced dementia. I discussed this in depth with the patient's and particularly regarding whether or not this was even appropriate care as we will not improve his dementia and his underlying medical issues. He is a non-candidate for any surgical procedures with his moderate aortic stenosis and congestive heart failure (valvular) and he has venous stasis ulcers and gluteal ulcers, decubitus ulcers, stage II, PRESENT on admission that will likely never heal due to the patient's malnutrition status in the setting of his dementia as he does not eat or drink on his own very well at all. He really has a hospice candidate and overall I suspect he has less than 6 months to live. I do not think antibiotics in the setting of infections and/or fluids in the setting of dehydration are going to relieve his discomfort in any way, shape, or form but will likely prolong his suffering and I explained this to the in depth. She still requested this therapy. The patient is on several medications for renal replacement including iron which can cause confusion with constipation with underlying dementia, calcitriol, but with IV fluids his creatinine corrected and I'm really not sure the status of his chronic kidney disease. The tells me that the patient visited with service member in [place] and has also visited with service member from [place], I have a call into them but have not heard back from the [place] service member yet. That being said, the patient is obviously not a dialysis candidate. His dementia alone really limits his options in terms of therapeutic aggressiveness for surgery and dialysis options. However, we did not find that he was in a stage IV or stage V chronic kidney disease. He did not have the classic findings of this, his iron was normal, his vitamin D level was normal, and his creatinine improved with fluids. I'm going to elect to stop these medications at this time. I discussed with his primary physician who is in agreement as well. The patient has had persistently elevated troponins on last 2 hospital stays. The patient's states that she does not want her having any additional cardiac evaluation. He did have an echocardiogram on prior hospital stay that shows moderate aortic stenosis. Today, he understands his name but does not understand anything about place, time, or situation. He cannot cognitively track with the conversation. It is not possible to do Mini-Mental state examination as he just does not understand the questions. Assessment and Plan: 1. As per discharge assessments noted 2. Disposition: Patient is discharged back to the [facility] 3. Condition on discharge, stable and improved. Overall I think his dementia is in a terminal state. 4. Diet: regular diet 5. Activities: resume normal activities 6. Follow-Up: 1. Dr. Moscoso will resume primary physician coverage 7. Medications at the Time of Discharge: Home Medications Medication Instructions Recorded Confirmed escitalopram 10 mg tablet 10 mg PO QDAY #90 tab 05/20/18 12/01/18 levothyroxine 75 mcg capsule 75 mcg PO QDAY #90 cap 05/20/18 12/01/18 ascorbic acid (vitamin C) 500 mg 500 mg PO .QD #1 cap 10/12/18 12/01/18 capsule aspirin 81 mg tablet,delayed 81 mg PO QDAY #1 tab 10/12/18 12/01/18 release calcium carbonate-vitamin D3 600 1 cap PO QAM #1 cap 10/12/18 12/01/18 mg (1,500 mg)-400 unit capsule insulin detemir (U-100) 100 5 unit SUBCUT QAM #3 ml 10/12/18 12/01/18 unit/mL (3 mL) subcutaneous pen polyethylene glycol 3350 17 17 g PO QDAY #119 g 10/12/18 12/01/18 gram/dose oral powder sennosides 8.6 mg tablet 8.6 mg PO BID PRN #1 tab 10/12/18 12/01/18 Acetaminophen 650 mg PO Q6H PRN #1 cap 12/03/18 12/01/18 Acetaminophen [Tylenol] 1,000 mg PO BID tab 12/03/18 Allopurinol [Zyloprim] 100 mg PO DAILY tab 12/03/18 I did renally dosed allopurinol. 8. Time, care, counseling and coordination of care for this discharge is greater than 30 minutes. Exam - Vitals Vital Signs: Vital Signs Temperature 97.5 F Temperature Source Temporal Artery Scan Pulse Rate [Pulse Oximeter] 60 Respiratory Rate 20 Blood Pressure [Left Arm] 139/57 Pulse Ox 95 Oxygen Delivery Method Room Air Height 5 ft 9 in Weight 245 lb - General General Appearance: No Acute Distress - Eye Eye Exam: POSITIVE: No Scleral Icterus - ENT ENT Exam: POSITIVE: Mucous Membranes Moist - Neck Neck Exam: JVP is not Raised - Respiratory Respiratory Exam: POSITIVE: Clear to Auscultation - Bilaterally, Breathing Non Labored - Cardiovascular Cardiovascular Exam: POSITIVE: RRR, No Clicks, No Gallops, No Rubs, Systolic Murmur, No JVD - GI/Abdominal GI/Abdominal Exam: POSITIVE: Normal Bowel Sounds, Non Tender, Non Distended, Soft - Rectal Rectal Exam: POSITIVE: Deferred - Extremities Extremities Exam: POSITIVE: No Clubbing Present, No Edema Present, No Cyanosis Present Additional Extremities Exam Details: Currently, the right lower extremity venous stasis ulcers are dressed with Xeroform gauze - Neurological Neurological Exam: POSITIVE: Alert, No Facial Droop, Speech Intact / Clear, Moves All Extremities Equally, Altered Additional Neurological Exam Details: The patient frequently does he rule out with some anxiousness, but he is not abusive in any fashion and does not harm anyone. He frequently is very pleasant. Data Peritnent Studies: 12/01/18 12/01/18 12/02/18 14:07 14:07 04:59 WBC Hgb Hct Plt Count Sodium Potassium Chloride Carbon Dioxide Anion Gap BUN 63 H Creatinine 2.0 H BUN/Creatinine Ratio Glucose Calculated Osmolality Calcium Magnesium Alkaline Phosphatase 94 72 Troponin I 0.081 H C-Reactive Protein 1.1 H NT-Pro-B Natriuret Pep 2280 H Total Protein 6.2 Albumin 3.2 L Globulin 3.0 Vitamin D 25-Hydroxy Urine Occult Blood 12/02/18 12/02/18 12/02/18 04:59 20:35 21:48 WBC 9.73 Hgb 11.0 L Hct 35.2 L Plt Count 181 Sodium Potassium Chloride Carbon Dioxide Anion Gap BUN Creatinine BUN/Creatinine Ratio Glucose Calculated Osmolality Calcium Magnesium Alkaline Phosphatase Troponin I C-Reactive Protein NT-Pro-B Natriuret Pep Total Protein Albumin Globulin Vitamin D 25-Hydroxy 36.0 Urine Occult Blood Trace-lysed H 12/03/18 04:52 WBC Hgb Hct Plt Count Sodium 140 Potassium 3.8 Chloride 106 Carbon Dioxide 22 L Anion Gap 12 BUN 44 H Creatinine 1.1 BUN/Creatinine Ratio 40.00 H Glucose 100 Calculated Osmolality 300.0 H Calcium 9.8 Magnesium 2.5 H Alkaline Phosphatase Troponin I C-Reactive Protein NT-Pro-B Natriuret Pep Total Protein Albumin Globulin Vitamin D 25-Hydroxy Urine Occult Blood Patient Problems - Patient Problem List (1) Altered mental status Current Visit: Yes Status: Acute Code(s): R41.82 - Altered mental status, unspecified Qualifiers: Altered mental status type: disorientation Qualified Code(s): R41.0 - Disorientation, unspecified Category: Medical (2) Renal failure, acute on chronic Current Visit: Yes Status: Acute Code(s): N17.9 - Acute kidney failure, unspecified; N18.9 - Chronic kidney disease, unspecified Qualifiers: Acute renal failure type: unspecified Chronic kidney disease stage: stage 3 (moderate) Qualified Code(s): N17.9 - Acute kidney failure, unspecified; N18.3 - Chronic kidney disease, stage 3 (moderate) Category: Medical (3) Gross hematuria Current Visit: Yes Status: Resolved Code(s): R31.0 - Gross hematuria Category: Medical (4) Elevated troponin Current Visit: Yes Status: Chronic Code(s): R74.8 - Abnormal levels of other serum enzymes Category: Medical (5) Hypertension Current Visit: Yes Status: Chronic Comment: blood pressure OK today Code(s): I10 - Essential (primary) hypertension Qualifiers: Hypertension type: essential hypertension Qualified Code(s): I10 - Essential (primary) hypertension Category: Medical (6) Hypothyroidism (acquired) Current Visit: Yes Status: Chronic Code(s): E03.9 - Hypothyroidism, unspecified Category: Medical (7) Dementia Current Visit: Yes Status: Acute Code(s): F03.90 - Unspecified dementia without behavioral disturbance Qualifiers: Dementia type: Alzheimer's disease Alzheimer's disease onset: late-onset Dementia behavioral disturbance: without behavioral disturbance Qualified Code(s): G30.1 - Alzheimer's disease with late onset; F02.80 - Dementia in other diseases classified elsewhere without behavioral disturbance Category: Medical (8) Diabetes mellitus type 2 in obese Current Visit: Yes Status: Acute Code(s): E11.69 - Type 2 diabetes mellitus with other specified complication; E66.9 - Obesity, unspecified Category: Medical (9) UTI (urinary tract infection) Current Visit: Yes Status: Ruled-out Comment: No further evidence of urinary tract infection. Code(s): N39.0 - Urinary tract infection, site not specified Qualifiers: Urinary tract infection type: catheter-associated UTI Indwelling urinary catheter type: indwelling urethral catheter Encounter type: initial encounter Qualified Code(s): T83.511A - Infection and inflammatory reaction due to indwelling urethral catheter, initial encounter; N39.0 - Urinary tract infection, site not specified Category: Medical (10) Failure to thrive Current Visit: Yes Status: Acute Qualifiers: Failure to thrive age range: in adult Qualified Code(s): R62.7 - Adult failure to thrive Category: Medical
== END 2018-12-03 12:53 | DRG 684 ==
LOC: ER 13:42 → MED/SURG 16:00
PROVIDERS: ADMIT Family Medicine; ATTEND Family Medicine

== ENCOUNTER 2019-03-20 10:16 | Inpatient (IN) ==
[2019-03-20] MEDS ORDERED: PANTOPRAZOLE IV 40 MG VIAL IVP ONE ×2 (10:37→13:57)
[2019-03-20 11:08] LABS: RED BLOOD COUNT 1.79 10^6/uL (4.70-6.10)
[2019-03-20 11:09] LABS: Hematocrit [HCT] 17.7 % (42.0-52.0); Hemoglobin [HGB] 5.2 g/dL (14.0-18.0); MEAN CORPUSCULAR HGB CONC 29.4 g/dL (33-37); MEAN CORPUSCULAR VOLUME 98.9 FL (80-90)
[2019-03-20 11:10] LABS: BASOPHILS # (AUTO) 0.02 10*3/UL; BASOPHILS % (AUTO) 0.2 % (0-1); EOSINOPHILS # (AUTO) 0 10*3/UL; EOSINOPHILS % (AUTO) 0 % (0-8); LYMPHOCYTES # (AUTO) 0.89 10*3/uL; MEAN PLATELET VOLUME 10.3 FL (7.4-12.2); MONOCYTES # (AUTO) 0.55 10*3/UL (0.3-0.8); NEUTROPHILS # (AUTO) 7.65 10*3/UL; NEUTROPHILS % (AUTO) 83.4 % (50-80); PLATELET MORPHOLOGY COMMENT NORMAL MORPHOLOGY (NORM); RBC MORPHOLOGY COMMENT NORMAL MORPHOLOGY (NORM); WBC MORPHOLOGY COMMENT NORMAL MORPHOLOGY (NORM)
[2019-03-20 11:11] LABS: SERUM ALBUMIN 2.9 g/dL (3.5-4.8)
[2019-03-20] MEDS ORDERED: Sodium Chloride 0.9% 500 ML PRIMARY IV ONE ×2 (11:46→14:19)
[2019-03-20] MEDS ORDERED: MORPHINE SULFATE 2 MG/1 ML IVP ONE (11:51)
[2019-03-20] MEDS ORDERED: ONDANSETRON 4 MG/2 ML VIAL IVP ONE (11:51)
[2019-03-20] MEDS ORDERED: ONDANSETRON 4 MG/2 ML VIAL IVP PRN (13:58)
[2019-03-20] MEDS ORDERED: Senna Tab 8.6 MG TAB PO PRN (14:19)
[2019-03-20] MEDS ORDERED: PHENAZOPYRIDINE PO PRN (14:19)
[2019-03-20] MEDS ORDERED: LIDOCAINE HCL 2 % 10 ML JELLY URO-JECT TOPICAL PRN (14:44)
[2019-03-20 16:06] LABS: BILIRUBIN,URINE NEGATIVE (NEG); CLARITY,URINE CLEAR (CLEAR); COLOR,URINE YELLOW; GLUCOSE, URINE (UA) NEGATIVE (NEG); OCCULT BLOOD,URINE SMALL (NEG); PROTEIN,URINE NEGATIVE (NEG); UROBILINOGEN,URINE 0.2 mg/dL (0.2)
[2019-03-20 16:13] LABS: URINE SAMPLE TYPE CLEAN CATCH URINE; YEAST,URINE MODERATE
[2019-03-20] MEDS ORDERED: FUROSEMIDE 10 MG/1 ML - 2 ML VIAL IVP ONE ×2 (16:30→17:00)
[2019-03-20] MEDS ORDERED: Spironolactone Tab 50 MG TAB PO SCH (21:00)
[2019-03-20] MEDS ORDERED: traZODone Tab 50 MG TAB PO SCH (21:00)
[2019-03-21 05:00] LABS: MEAN CORPUSCULAR HGB CONC 30.7 g/dL (33-37); MEAN CORPUSCULAR VOLUME 98.4 FL (80-90); MEAN PLATELET VOLUME 10.7 FL (7.4-12.2); RED BLOOD COUNT 1.92 10^6/uL (4.70-6.10)
[2019-03-21 05:03] LABS: Hematocrit [HCT] 18.9 % (42.0-52.0); Hemoglobin [HGB] 5.8 g/dL (14.0-18.0)
[2019-03-21 05:16] LABS: BUN/CREATININE RATIO 62.22 (6-20); SERUM ALBUMIN 2.6 g/dL (3.5-4.8)
[2019-03-21] MEDS: LEVOTHYROXINE 75 MCG TABLET PO SCH (05:21)
[2019-03-21] MEDS ORDERED: Sodium Chloride 0.9% 500 ML PRIMARY IV ONE (05:24)
[2019-03-21] MEDS ORDERED: Sodium Chloride 0.9% 500 ML IV ONE (08:01)
[2019-03-21] MEDS: Sodium Chloride 0.9% 250 ML IV SCH ×3 (08:57→10:33)
[2019-03-21] MEDS ORDERED: ALLOPURINOL 300 MG TABLET PO SCH (09:00)
[2019-03-21] MEDS ORDERED: PANTOPRAZOLE IV 40 MG VIAL IVP SCH ×2 (09:00)
[2019-03-21] MEDS: PANTOPRAZOLE IV 40 MG VIAL IVP SCH ×2 (09:00→20:22)
[2019-03-21] MEDS ORDERED: Insulin Detemir 300unit/3ml Flexpen SUBCUT SCH (09:00)
[2019-03-21] MEDS ORDERED: FUROSEMIDE 10 MG/1 ML - 2 ML VIAL IVP ONE ×2 (09:00→13:00)
[2019-03-21] MEDS ORDERED: BUMETANIDE 1 MG TABLET PO SCH (09:00)
[2019-03-21] MEDS: Sodium Chloride 0.9% 1,000 ML PRIMARY IV SCH ×2 (10:30→18:44)
[2019-03-21] MEDS ORDERED: LIDOCAINE HCL 2 % 10 ML JELLY URO-JECT TOPICAL PRN (12:49)
[2019-03-21 13:30] LABS: RED BLOOD COUNT 2.17 10^6/uL (4.70-6.10)
[2019-03-21 13:36] LABS: BASOPHILS % (AUTO) 0.2 % (0-1); EOSINOPHILS % (AUTO) 0 % (0-8); Hematocrit [HCT] 21.1 % (42.0-52.0); LYMPHOCYTES # (AUTO) 1.79 10*3/uL; MEAN CORPUSCULAR HGB CONC 31.3 g/dL (33-37); MEAN CORPUSCULAR VOLUME 97.2 FL (80-90); MEAN PLATELET VOLUME 10.2 FL (7.4-12.2); MONOCYTES # (AUTO) 2.13 10*3/UL (0.3-0.8); MONOCYTES % (AUTO) 12.2 % (5-15); NEUTROPHILS # (AUTO) 13.47 10*3/UL; NEUTROPHILS % (AUTO) 77.1 % (50-80)
[2019-03-21 13:37] LABS: BASOPHILS # (AUTO) 0.03 10*3/UL; EOSINOPHILS # (AUTO) 0 10*3/UL; PLATELET MORPHOLOGY COMMENT NORMAL MORPHOLOGY (NORM); RBC MORPHOLOGY COMMENT NORMAL MORPHOLOGY (NORM); WBC MORPHOLOGY COMMENT NORMAL MORPHOLOGY (NORM)
[2019-03-21 13:43] LABS: BLOOD UREA NITROGEN 125 mg/dL (7-22); BUN/CREATININE RATIO 69.44 (6-20)
[2019-03-21 14:57] LABS: Hemoglobin [HGB] 6.6 g/dL (14.0-18.0)
[2019-03-21 19:02] LABS: Hematocrit [HCT] 22.7 % (42.0-52.0); Hemoglobin [HGB] 7.3 g/dL (14.0-18.0)
[2019-03-21 23:02] LABS: BASOPHILS # (AUTO) 0.03 10*3/UL; BASOPHILS % (AUTO) 0.1 % (0-1); EOSINOPHILS # (AUTO) 0.01 10*3/UL; EOSINOPHILS % (AUTO) 0 % (0-8); Hematocrit [HCT] 22.1 % (42.0-52.0); Hemoglobin [HGB] 7.1 g/dL (14.0-18.0); LYMPHOCYTES # (AUTO) 2.03 10*3/uL; MEAN CORPUSCULAR HGB CONC 32.1 g/dL (33-37); MEAN CORPUSCULAR VOLUME 94.4 FL (80-90); MONOCYTES # (AUTO) 2.26 10*3/UL (0.3-0.8); MONOCYTES % (AUTO) 11.1 % (5-15); NEUTROPHILS # (AUTO) 15.93 10*3/UL; NEUTROPHILS % (AUTO) 78.3 % (50-80); PLATELET MORPHOLOGY COMMENT NORMAL MORPHOLOGY (NORM); RBC MORPHOLOGY COMMENT NORMAL MORPHOLOGY (NORM); RED BLOOD COUNT 2.34 10^6/uL (4.70-6.10); WBC MORPHOLOGY COMMENT NORMAL MORPHOLOGY (NORM)
[2019-03-21 23:43] LABS: BUN/CREATININE RATIO 77.05 (6-20)
[2019-03-22] MEDS: Sodium Chloride 0.9% 1,000 ML PRIMARY IV SCH ×3 (02:18→10:38)
[2019-03-22 05:10] LABS: BASOPHILS # (AUTO) 0.03 10*3/UL; BASOPHILS % (AUTO) 0.1 % (0-1); EOSINOPHILS # (AUTO) 0.01 10*3/UL; EOSINOPHILS % (AUTO) 0 % (0-8); Hematocrit [HCT] 22.4 % (42.0-52.0); Hemoglobin [HGB] 7.3 g/dL (14.0-18.0); LYMPHOCYTES # (AUTO) 2.25 10*3/uL; MEAN CORPUSCULAR HGB CONC 32.6 g/dL (33-37); MEAN CORPUSCULAR VOLUME 96.6 FL (80-90); MEAN PLATELET VOLUME 10.5 FL (7.4-12.2); MONOCYTES # (AUTO) 2.69 10*3/UL (0.3-0.8); MONOCYTES % (AUTO) 12.9 % (5-15); NEUTROPHILS # (AUTO) 15.69 10*3/UL; NEUTROPHILS % (AUTO) 75.4 % (50-80); PLATELET MORPHOLOGY COMMENT NORMAL MORPHOLOGY (NORM); RBC MORPHOLOGY COMMENT NORMAL MORPHOLOGY (NORM); RED BLOOD COUNT 2.32 10^6/uL (4.70-6.10); WBC MORPHOLOGY COMMENT NORMAL MORPHOLOGY (NORM)
[2019-03-22] MEDS: LEVOTHYROXINE 75 MCG TABLET PO SCH (05:17)
[2019-03-22 05:46] LABS: BUN/CREATININE RATIO 79.41 (6-20)
[2019-03-22] MEDS: PANTOPRAZOLE IV 40 MG VIAL IVP SCH ×2 (08:13→21:43)
[2019-03-22] MEDS: Ertapenem Inj 0.5 GM in Sodium Chloride 0.9% 100 ML IV SCH (08:41)
[2019-03-22] MEDS: Acetaminophen 1000mg Inj 1,000 MG/100 ML VIAL IV PRN ×2 (09:48→17:33)
[2019-03-22 13:25] LABS: Hematocrit [HCT] 23.2 % (42.0-52.0); Hemoglobin [HGB] 7.2 g/dL (14.0-18.0)
[2019-03-22 13:49] LABS: BUN/CREATININE RATIO 86.87 (6-20)
[2019-03-22] MEDS ORDERED: FUROSEMIDE 10 MG/1 ML - 2 ML VIAL IVP ONE (14:06)
[2019-03-22] MEDS: Lactated Ringers 1,000 ML PRIMARY IV SCH ×2 (15:21→22:51)
[2019-03-22 20:31] LABS: Hematocrit [HCT] 25.7 % (42.0-52.0); Hemoglobin [HGB] 8.1 g/dL (14.0-18.0)
[2019-03-22 20:53] LABS: VENOUS PCO2 28.6 mmHg (45-55); VENOUS PH 7.57 (7.32-7.42)
[2019-03-22 21:15] LABS: BUN/CREATININE RATIO 92.66 (6-20)
[2019-03-22] MEDS: D5-1/2NS 1,000 ML PRIMARY IV SCH (22:46)
[2019-03-23] MEDS ORDERED: BISACODYL 10 MG SUPPOSITORY RECTAL ONE (00:13)
[2019-03-23] MEDS: Acetaminophen 1000mg Inj 1,000 MG/100 ML VIAL IV PRN (01:01)
[2019-03-23] MEDS: LEVOTHYROXINE 75 MCG TABLET PO SCH (04:29)
[2019-03-23 05:24] LABS: BASOPHILS % (AUTO) 0.1 % (0-1); EOSINOPHILS % (AUTO) 0 % (0-8); Hematocrit [HCT] 24.3 % (42.0-52.0); Hemoglobin [HGB] 7.6 g/dL (14.0-18.0); LYMPHOCYTES # (AUTO) 1.41 10*3/uL; MEAN CORPUSCULAR HGB CONC 31.3 g/dL (33-37); MEAN CORPUSCULAR VOLUME 99.2 FL (80-90); MEAN PLATELET VOLUME 10.6 FL (7.4-12.2); MONOCYTES # (AUTO) 2.34 10*3/UL (0.3-0.8); NEUTROPHILS # (AUTO) 17.38 10*3/UL; NEUTROPHILS % (AUTO) 81.9 % (50-80); RED BLOOD COUNT 2.45 10^6/uL (4.70-6.10)
[2019-03-23 05:25] LABS: BASOPHILS # (AUTO) 0.02 10*3/UL; EOSINOPHILS # (AUTO) 0.01 10*3/UL; PLATELET MORPHOLOGY COMMENT NORMAL MORPHOLOGY (NORM); RBC MORPHOLOGY COMMENT NORMAL MORPHOLOGY (NORM); WBC MORPHOLOGY COMMENT NORMAL MORPHOLOGY (NORM)
[2019-03-23 05:41] LABS: SERUM ALBUMIN 2.7 g/dL (3.5-4.8)
[2019-03-23 05:47] LABS: BUN/CREATININE RATIO 85.33 (6-20)
[2019-03-23] MEDS ORDERED: D5W IV SCH ×2 (07:15)
[2019-03-23] MEDS ORDERED: POTASSIUM CHLORIDE IV SCH ×2 (07:15)
[2019-03-23] MEDS: D5W 250 ML IV SCH ×7 (07:21→15:33)
[2019-03-23] MEDS: D5-1/2NS + 10mEq KCL 1,000 ML PRIMARY IV SCH ×2 (07:40→16:37)
[2019-03-23] MEDS: Ertapenem Inj 0.5 GM in Sodium Chloride 0.9% 100 ML IV SCH (08:20)
[2019-03-23] MEDS: PANTOPRAZOLE IV 40 MG VIAL IVP SCH (10:11)
[2019-03-23] MEDS ORDERED: Sodium Chloride 0.9% 500 ML PRIMARY IV ONE (10:20)
[2019-03-23] MEDS ORDERED: Nasal Sanitizer POPSWAB ampule 3 AMP (Nozin) PREOP DOSE ENOS SCH (12:30)
[2019-03-23] MEDS ORDERED: Lidocaine 1% 10 MG/ML - 20 ML VIAL SUBCUT PRN (14:06)
[2019-03-23] MEDS ORDERED: LIDOCAINE 2% 20 MG/ML - 20 ML VIAL SUBCUT PRN (14:06)
[2019-03-23 14:27] LABS: BILIRUBIN,URINE NEGATIVE (NEG); CLARITY,URINE CLEAR (CLEAR); COLOR,URINE YELLOW (Y); GLUCOSE, URINE (UA) NEGATIVE (NEG); OCCULT BLOOD,URINE NEGATIVE (NEG); PH,URINE 5.5 (5.0-8.5); PROTEIN,URINE NEGATIVE (NEG); UROBILINOGEN,URINE 0.2 EU/dL (0.2)
[2019-03-23 14:35] LABS: BACTERIA,URINE RARE; RBC,URINE RARE /hpf; SQUAMOUS EPITHELIAL CELL,UR RARE; URINE SAMPLE TYPE CATH SPECIMEN; WBC,URINE 15-20
[2019-03-23 14:36] LABS: YEAST,URINE MANY
[2019-03-23] MEDS: OCTREOTIDE ACETATE IV SCH (15:16)
[2019-03-23] MEDS: SODIUM CHLORIDE 0.9% IV SCH (15:16)
[2019-03-23] MEDS ORDERED: FUROSEMIDE 10 MG/1 ML - 2 ML VIAL IVP ONE ×2 (19:38→21:59)
[2019-03-23 21:25] LABS: Hemoglobin [HGB] 9.3 g/dL (14.0-18.0); RED BLOOD COUNT 2.98 10^6/uL (4.70-6.10)
[2019-03-23 21:26] LABS: BASOPHILS # (AUTO) 0.02 10*3/UL; BASOPHILS % (AUTO) 0.1 % (0-1); EOSINOPHILS # (AUTO) 0.08 10*3/UL; EOSINOPHILS % (AUTO) 0.4 % (0-8); Hematocrit [HCT] 29.3 % (42.0-52.0); LYMPHOCYTES # (AUTO) 1.16 10*3/uL; MEAN CORPUSCULAR HGB CONC 31.7 g/dL (33-37); MEAN CORPUSCULAR VOLUME 98.3 FL (80-90); MEAN PLATELET VOLUME 10.1 FL (7.4-12.2); MONOCYTES # (AUTO) 1.87 10*3/UL (0.3-0.8); NEUTROPHILS % (AUTO) 84.6 % (50-80); PLATELET MORPHOLOGY COMMENT NORMAL MORPHOLOGY (NORM); RBC MORPHOLOGY COMMENT NORMAL MORPHOLOGY (NORM); WBC MORPHOLOGY COMMENT NORMAL MORPHOLOGY (NORM)
[2019-03-23 21:32] LABS: BUN/CREATININE RATIO 83.84 (6-20); SERUM ALBUMIN 2.9 g/dL (3.5-4.8)
[2019-03-23] MEDS: D5-1/2NS 1,000 ML PRIMARY IV SCH (21:32)
[2019-03-23] MEDS: POTASSIUM CHLORIDE 20 MEQ TAB PO SCH (22:26)
[2019-03-24 00:30] LABS: BUN/CREATININE RATIO 81.53 (6-20)
[2019-03-24] MEDS: D5W 1,000 ML PRIMARY IV SCH ×2 (00:54→12:36)
[2019-03-24] MEDS: SODIUM CHLORIDE 0.9% IV SCH ×2 (02:00→13:05)
[2019-03-24] MEDS: OCTREOTIDE ACETATE IV SCH ×2 (02:00→13:05)
[2019-03-24] MEDS: LEVOTHYROXINE 75 MCG TABLET PO SCH (04:31)
[2019-03-24 05:17] LABS: Hematocrit [HCT] 29.5 % (42.0-52.0); Hemoglobin [HGB] 9.2 g/dL (14.0-18.0); MEAN CORPUSCULAR HGB CONC 31.2 g/dL (33-37); MEAN PLATELET VOLUME 11.3 FL (7.4-12.2); RED BLOOD COUNT 2.98 10^6/uL (4.70-6.10)
[2019-03-24 05:24] LABS: BUN/CREATININE RATIO 79.23 (6-20)
[2019-03-24 08:21] LABS: BUN/CREATININE RATIO 76.15 (6-20)
[2019-03-24] MEDS: Ertapenem Inj 0.5 GM in Sodium Chloride 0.9% 100 ML IV SCH (09:04)
[2019-03-24] MEDS ORDERED: FUROSEMIDE 10 MG/1 ML - 4 ML IVP ONE (10:36)
[2019-03-24] MEDS ORDERED: POTASSIUM CHLORIDE 20 MEQ TAB PO ONE (10:37)
[2019-03-24 12:28] LABS: BUN/CREATININE RATIO 62.85 (6-20)
[2019-03-24 20:15] LABS: BLOOD UREA NITROGEN 84 mg/dL (7-22); BUN/CREATININE RATIO 76.36 (6-20)
[2019-03-24] MEDS: POTASSIUM CHLORIDE 20 MEQ TAB PO SCH (20:35)
[2019-03-24 20:40] LABS: Hematocrit [HCT] 30.1 % (42.0-52.0); Hemoglobin [HGB] 9.4 g/dL (14.0-18.0); MEAN CORPUSCULAR HGB CONC 31.2 g/dL (33-37); MEAN PLATELET VOLUME 10.4 FL (7.4-12.2); RED BLOOD COUNT 3.04 10^6/uL (4.70-6.10)
[2019-03-25] MEDS: OCTREOTIDE ACETATE IV SCH (02:56)
[2019-03-25] MEDS: SODIUM CHLORIDE 0.9% IV SCH (02:56)
[2019-03-25] MEDS: LEVOTHYROXINE 75 MCG TABLET PO SCH (04:39)
[2019-03-25 05:05] LABS: Hemoglobin [HGB] 9.6 g/dL (14.0-18.0); MEAN CORPUSCULAR VOLUME 99.4 FL (80-90); MEAN PLATELET VOLUME 11.1 FL (7.4-12.2); RED BLOOD COUNT 3.12 10^6/uL (4.70-6.10)
[2019-03-25 05:06] LABS: BLOOD UREA NITROGEN 73 mg/dL (7-22); BUN/CREATININE RATIO 66.36 (6-20)
[2019-03-25] MEDS ORDERED: Lactated Ringers 1,000 ML PRIMARY IV SCH ×2 (06:00→07:15)
[2019-03-25] MEDS ORDERED: PROPOFOL 10 MG/1 ML (200 MG/20 ML) VIAL IV ONE (07:53)
[2019-03-25] MEDS ORDERED: BUPRENORPHINE TOPICAL SCH (09:00)
[2019-03-25] MEDS: Ertapenem Inj 0.5 GM in Sodium Chloride 0.9% 100 ML IV SCH (09:29)
[2019-03-25] MEDS ORDERED: PANTOPRAZOLE 40 MG TABLET PO ONE (09:54)
[2019-03-25] MEDS: Fluconazole 200mg (Premix) 200 MG/100 ML BAG IV SCH (11:27)
[2019-03-25] MEDS ORDERED: Vancomycin-PHA to Dose IV PRN (13:55)
[2019-03-25] MEDS: ACETAMINOPHEN 500 MG TABLET PO SCH (20:47)
[2019-03-25] MEDS: PANTOPRAZOLE 40 MG TABLET PO SCH (20:49)
[2019-03-25] MEDS ORDERED: POTASSIUM CHLORIDE 20 MEQ TAB PO SCH (20:53)
[2019-03-26] MEDS ORDERED: ERTAPENEM 1 GM VIAL ONE (03:36)
[2019-03-26 04:25] LABS: Hematocrit [HCT] 30.7 % (42.0-52.0); Hemoglobin [HGB] 9.4 g/dL (14.0-18.0); MEAN CORPUSCULAR HGB CONC 30.6 g/dL (33-37); MEAN CORPUSCULAR VOLUME 100.3 FL (80-90); RED BLOOD COUNT 3.06 10^6/uL (4.70-6.10)
[2019-03-26 04:26] LABS: BASOPHILS # (AUTO) 0.02 10*3/UL; BASOPHILS % (AUTO) 0.1 % (0-1); EOSINOPHILS # (AUTO) 0.35 10*3/UL; EOSINOPHILS % (AUTO) 2.1 % (0-8); LYMPHOCYTES # (AUTO) 0.94 10*3/uL; MEAN PLATELET VOLUME 9.5 FL (7.4-12.2); MONOCYTES % (AUTO) 10.9 % (5-15); NEUTROPHILS # (AUTO) 13.27 10*3/UL; NEUTROPHILS % (AUTO) 80.5 % (50-80); PLATELET MORPHOLOGY COMMENT NORMAL MORPHOLOGY (NORM); RBC MORPHOLOGY COMMENT NORMAL MORPHOLOGY (NORM); WBC MORPHOLOGY COMMENT NORMAL MORPHOLOGY (NORM)
[2019-03-26 04:39] LABS: BLOOD UREA NITROGEN 59 mg/dL (7-22); BUN/CREATININE RATIO 53.63 (6-20)
[2019-03-26] MEDS: HEPARIN 500 UNIT/5 ML SYRINGE FOR CENTRAL LINE IVP PRN ×2 (05:09→09:47)
[2019-03-26] MEDS: LEVOTHYROXINE 75 MCG TABLET PO SCH (05:51)
[2019-03-26] MEDS: PANTOPRAZOLE 40 MG TABLET PO SCH ×2 (08:56→20:58)
[2019-03-26] MEDS: ACETAMINOPHEN 500 MG TABLET PO SCH ×2 (08:56→20:59)
[2019-03-26] MEDS: Ertapenem Inj 0.5 GM in Sodium Chloride 0.9% 100 ML IV SCH (08:56)
[2019-03-26] MEDS: Fluconazole 200mg (Premix) 200 MG/100 ML BAG IV SCH (09:48)
[2019-03-27 05:12] LABS: Hematocrit [HCT] 31.3 % (42.0-52.0); Hemoglobin [HGB] 9.6 g/dL (14.0-18.0); MEAN CORPUSCULAR HGB CONC 30.7 g/dL (33-37); MEAN PLATELET VOLUME 10.6 FL (7.4-12.2); RED BLOOD COUNT 3.13 10^6/uL (4.70-6.10)
[2019-03-27 05:13] LABS: BASOPHILS # (AUTO) 0.02 10*3/UL; BASOPHILS % (AUTO) 0.2 % (0-1); EOSINOPHILS # (AUTO) 0.61 10*3/UL; EOSINOPHILS % (AUTO) 4.7 % (0-8); LYMPHOCYTES # (AUTO) 1.44 10*3/uL; MONOCYTES # (AUTO) 1.23 10*3/UL (0.3-0.8); MONOCYTES % (AUTO) 9.5 % (5-15); NEUTROPHILS # (AUTO) 9.53 10*3/UL; NEUTROPHILS % (AUTO) 73.8 % (50-80); PLATELET MORPHOLOGY COMMENT NORMAL MORPHOLOGY (NORM); RBC MORPHOLOGY COMMENT NORMAL MORPHOLOGY (NORM); WBC MORPHOLOGY COMMENT NORMAL MORPHOLOGY (NORM)
[2019-03-27] MEDS: LEVOTHYROXINE 75 MCG TABLET PO SCH (05:28)
[2019-03-27] MEDS: Ertapenem Inj 0.5 GM in Sodium Chloride 0.9% 100 ML IV SCH (08:10)
[2019-03-27] MEDS: HEPARIN 500 UNIT/5 ML SYRINGE FOR CENTRAL LINE IVP PRN (08:14)
[2019-03-27] MEDS: PANTOPRAZOLE 40 MG TABLET PO SCH ×2 (08:14→20:02)
[2019-03-27] MEDS: ACETAMINOPHEN 500 MG TABLET PO SCH ×2 (08:14→20:03)
[2019-03-27] MEDS: Fluconazole 200mg (Premix) 200 MG/100 ML BAG IV SCH (09:14)
[2019-03-27] MEDS ORDERED: CALCIUM CARBONATE 500 MG (TUMS) CHEWABLE TABLET PO PRN (14:19)
[2019-03-27] MEDS: traZODone Tab 50 MG TAB PO SCH (21:52)
[2019-03-28] MEDS: LEVOTHYROXINE 75 MCG TABLET PO SCH (04:32)
[2019-03-28] MEDS: HEPARIN 500 UNIT/5 ML SYRINGE FOR CENTRAL LINE IVP PRN (04:34)
[2019-03-28 04:49] LABS: Hematocrit [HCT] 28.9 % (42.0-52.0); Hemoglobin [HGB] 8.9 g/dL (14.0-18.0); RED BLOOD COUNT 2.91 10^6/uL (4.70-6.10)
[2019-03-28 04:50] LABS: BASOPHILS # (AUTO) 0.03 10*3/UL; BASOPHILS % (AUTO) 0.3 % (0-1); EOSINOPHILS # (AUTO) 0.66 10*3/UL; EOSINOPHILS % (AUTO) 7.3 % (0-8); LYMPHOCYTES # (AUTO) 1.16 10*3/uL; MEAN CORPUSCULAR HGB CONC 30.8 g/dL (33-37); MEAN CORPUSCULAR VOLUME 99.3 FL (80-90); MEAN PLATELET VOLUME 10.6 FL (7.4-12.2); MONOCYTES # (AUTO) 0.85 10*3/UL (0.3-0.8); MONOCYTES % (AUTO) 9.4 % (5-15); NEUTROPHILS % (AUTO) 69.6 % (50-80); PLATELET MORPHOLOGY COMMENT NORMAL MORPHOLOGY (NORM); RBC MORPHOLOGY COMMENT NORMAL MORPHOLOGY (NORM); WBC MORPHOLOGY COMMENT NORMAL MORPHOLOGY (NORM)
[2019-03-28] MEDS: ACETAMINOPHEN 500 MG TABLET PO SCH ×2 (08:18→21:51)
[2019-03-28] MEDS: PANTOPRAZOLE 40 MG TABLET PO SCH ×2 (08:18→21:51)
[2019-03-28] MEDS: Ertapenem Inj 0.5 GM in Sodium Chloride 0.9% 100 ML IV SCH (08:18)
[2019-03-28] MEDS: Fluconazole 200mg (Premix) 200 MG/100 ML BAG IV SCH (09:40)
[2019-03-28] MEDS: traZODone Tab 50 MG TAB PO SCH (21:51)
[2019-03-29] MEDS: HEPARIN 500 UNIT/5 ML SYRINGE FOR CENTRAL LINE IVP PRN (00:14)
[2019-03-29] MEDS: LEVOTHYROXINE 75 MCG TABLET PO SCH (04:46)
[2019-03-29 05:41] LABS: BLOOD UREA NITROGEN 22 mg/dL (7-22); SERUM ALBUMIN 2.5 g/dL (3.5-4.8)
[2019-03-29 05:53] LABS: BASOPHILS # (AUTO) 0.04 10*3/UL; BASOPHILS % (AUTO) 0.5 % (0-1); EOSINOPHILS # (AUTO) 0.55 10*3/UL; EOSINOPHILS % (AUTO) 7.1 % (0-8); Hematocrit [HCT] 30.4 % (42.0-52.0); Hemoglobin [HGB] 9.2 g/dL (14.0-18.0); MEAN CORPUSCULAR HGB CONC 30.3 g/dL (33-37); MEAN CORPUSCULAR VOLUME 99.7 FL (80-90); MONOCYTES # (AUTO) 0.65 10*3/UL (0.3-0.8); MONOCYTES % (AUTO) 8.4 % (5-15); NEUTROPHILS # (AUTO) 5.14 10*3/UL; NEUTROPHILS % (AUTO) 66.6 % (50-80); RED BLOOD COUNT 3.05 10^6/uL (4.70-6.10)
[2019-03-29 05:54] LABS: PLATELET MORPHOLOGY COMMENT NORMAL MORPHOLOGY (NORM); RBC MORPHOLOGY COMMENT NORMAL MORPHOLOGY (NORM); WBC MORPHOLOGY COMMENT NORMAL MORPHOLOGY (NORM)
[2019-03-29 06:46] VITALS: BP 123/62; RESP 18; TEMP 98.6; O2SAT 100
[2019-03-29] MEDS: PANTOPRAZOLE 40 MG TABLET PO SCH (08:00)
[2019-03-29] MEDS: ACETAMINOPHEN 500 MG TABLET PO SCH (08:00)
[2019-03-29] MEDS ORDERED: POTASSIUM CHLORIDE 20 MEQ TAB PO ONE (08:30)
== END 2019-03-29 09:00 | disposition home or self-care (01) | DRG 391 ==
LOC: MED/SURG 10:16 → ER 10:16 → MED/SURG 13:40 → OPS 03-25 08:30 → MED/SURG 03-25 09:06
PROVIDERS: ADMIT Surgery; ATTEND Internal Medicine

== ENCOUNTER 2019-03-31 10:45 | Inpatient (IN) ==
[2019-03-31 12:09] LABS: BASOPHILS # (AUTO) 0.03 10*3/UL; BASOPHILS % (AUTO) 0.4 % (0-1); EOSINOPHILS # (AUTO) 0.27 10*3/UL; EOSINOPHILS % (AUTO) 3.2 % (0-8); Hematocrit [HCT] 31.9 % (42.0-52.0); Hemoglobin [HGB] 9.6 g/dL (14.0-18.0); MEAN CORPUSCULAR HGB CONC 30.1 g/dL (33-37); MEAN CORPUSCULAR VOLUME 100.6 FL (80-90); MEAN PLATELET VOLUME 11.1 FL (7.4-12.2); MONOCYTES # (AUTO) 0.75 10*3/UL (0.3-0.8); MONOCYTES % (AUTO) 8.9 % (5-15); NEUTROPHILS # (AUTO) 6.23 10*3/UL; NEUTROPHILS % (AUTO) 74.2 % (50-80); RED BLOOD COUNT 3.17 10^6/uL (4.70-6.10)
[2019-03-31 12:11] LABS: PLATELET MORPHOLOGY COMMENT NORMAL MORPHOLOGY (NORM); RBC MORPHOLOGY COMMENT NORMAL MORPHOLOGY (NORM); WBC MORPHOLOGY COMMENT NORMAL MORPHOLOGY (NORM)
[2019-03-31 12:15] LABS: BLOOD UREA NITROGEN 15 mg/dL (7-22); BUN/CREATININE RATIO 18.75 (6-20); SERUM ALBUMIN 2.8 g/dL (3.5-4.8)
[2019-03-31] MEDS: PANTOPRAZOLE 40 MG TABLET PO SCH (18:27)
[2019-03-31] MEDS: traZODone Tab 50 MG TAB PO SCH (21:25)
[2019-04-01] MEDS: LEVOTHYROXINE 75 MCG TABLET PO SCH (04:44)
[2019-04-01 05:28] LABS: BASOPHILS # (AUTO) 0.03 10*3/UL; BASOPHILS % (AUTO) 0.4 % (0-1); EOSINOPHILS # (AUTO) 0.34 10*3/UL; EOSINOPHILS % (AUTO) 4.6 % (0-8); Hematocrit [HCT] 31.3 % (42.0-52.0); Hemoglobin [HGB] 9.4 g/dL (14.0-18.0); LYMPHOCYTES # (AUTO) 1.09 10*3/uL; MEAN CORPUSCULAR VOLUME 100.3 FL (80-90); MEAN PLATELET VOLUME 11.4 FL (7.4-12.2); MONOCYTES # (AUTO) 0.78 10*3/UL (0.3-0.8); MONOCYTES % (AUTO) 10.6 % (5-15); NEUTROPHILS # (AUTO) 5.09 10*3/UL; NEUTROPHILS % (AUTO) 69.3 % (50-80); RED BLOOD COUNT 3.12 10^6/uL (4.70-6.10)
[2019-04-01 05:34] LABS: PLATELET MORPHOLOGY COMMENT NORMAL MORPHOLOGY (NORM); RBC MORPHOLOGY COMMENT NORMAL MORPHOLOGY (NORM); WBC MORPHOLOGY COMMENT NORMAL MORPHOLOGY (NORM)
[2019-04-01 05:42] LABS: BLOOD UREA NITROGEN 16 mg/dL (7-22); BUN/CREATININE RATIO 17.77 (6-20); SERUM ALBUMIN 2.7 g/dL (3.5-4.8)
[2019-04-01] MEDS ORDERED: Magnesium Sulfate 2gm (Premix) 2 GM/50 ML BAG IV ONE (08:20)
[2019-04-01] MEDS: PANTOPRAZOLE 40 MG TABLET PO SCH ×2 (08:43→17:43)
[2019-04-01] MEDS: Senna Tab 8.6 MG TAB PO PRN (08:46)
[2019-04-01] MEDS: FERROUS SULFATE 325 MG TABLET PO SCH (08:47)
[2019-04-01] MEDS: FLUCONAZOLE 200 MG TABLET PO SCH (08:47)
[2019-04-01] MEDS: ESCITALOPRAM 10 MG TABLET PO SCH (08:47)
[2019-04-01] MEDS: Calcium/Vit D 600mg/400u Tab 1 TAB TABLET PO SCH (08:47)
[2019-04-01] MEDS: CALCITRIOL 0.25 MCG CAPSULE PO SCH (08:47)
[2019-04-01] MEDS: POLYETHYLENE GLYCOL 3350 17 GM POWDER PO SCH (08:48)
[2019-04-01] MEDS: Insulin Detemir 300unit/3ml Flexpen SUBCUT SCH (08:48)
[2019-04-01] MEDS ORDERED: HEPARIN 500 UNIT/5 ML SYRINGE FOR CENTRAL LINE IVP ONE (12:24)
[2019-04-01] MEDS: ACETAMINOPHEN 325 MG TABLET PO PRN (19:01)
[2019-04-01] MEDS: traZODone Tab 50 MG TAB PO SCH (21:34)
[2019-04-02] MEDS: ACETAMINOPHEN 325 MG TABLET PO PRN ×3 (03:27→23:47)
[2019-04-02] MEDS: LEVOTHYROXINE 75 MCG TABLET PO SCH (04:45)
[2019-04-02] MEDS: PANTOPRAZOLE 40 MG TABLET PO SCH ×2 (07:14→16:49)
[2019-04-02] MEDS ORDERED: HEPARIN 500 UNIT/5 ML SYRINGE FOR CENTRAL LINE IVP ONE ×2 (08:41→11:01)
[2019-04-02] MEDS: FERROUS SULFATE 325 MG TABLET PO SCH (08:43)
[2019-04-02] MEDS: Senna Tab 8.6 MG TAB PO PRN ×2 (08:43→21:17)
[2019-04-02] MEDS: ESCITALOPRAM 10 MG TABLET PO SCH (08:43)
[2019-04-02] MEDS: CALCITRIOL 0.25 MCG CAPSULE PO SCH (08:43)
[2019-04-02] MEDS: Calcium/Vit D 600mg/400u Tab 1 TAB TABLET PO SCH (08:43)
[2019-04-02] MEDS: POLYETHYLENE GLYCOL 3350 17 GM POWDER PO SCH (08:43)
[2019-04-02] MEDS: FLUCONAZOLE 200 MG TABLET PO SCH (08:44)
[2019-04-02] MEDS: Insulin Detemir 300unit/3ml Flexpen SUBCUT SCH (08:52)
[2019-04-02 09:51] LABS: BLOOD UREA NITROGEN 16 mg/dL (7-22); BUN/CREATININE RATIO 17.77 (6-20); SERUM ALBUMIN 2.9 g/dL (3.5-4.8)
[2019-04-02] MEDS ORDERED: Magnesium Sulfate 2gm (Premix) 2 GM/50 ML BAG IV ONE (10:23)
[2019-04-02] MEDS: traZODone Tab 50 MG TAB PO SCH (21:17)
[2019-04-03] MEDS: LEVOTHYROXINE 75 MCG TABLET PO SCH (08:09)
[2019-04-03] MEDS: PANTOPRAZOLE 40 MG TABLET PO SCH ×2 (08:09→16:25)
[2019-04-03 09:21] LABS: BLOOD UREA NITROGEN 16 mg/dL (7-22); BUN/CREATININE RATIO 17.77 (6-20); SERUM ALBUMIN 2.8 g/dL (3.5-4.8)
[2019-04-03] MEDS: CALCITRIOL 0.25 MCG CAPSULE PO SCH (09:55)
[2019-04-03] MEDS: FERROUS SULFATE 325 MG TABLET PO SCH (09:55)
[2019-04-03] MEDS: Calcium/Vit D 600mg/400u Tab 1 TAB TABLET PO SCH (09:56)
[2019-04-03] MEDS: Insulin Detemir 300unit/3ml Flexpen SUBCUT SCH (09:56)
[2019-04-03] MEDS: FLUCONAZOLE 200 MG TABLET PO SCH (09:56)
[2019-04-03] MEDS: ESCITALOPRAM 10 MG TABLET PO SCH (09:56)
[2019-04-03] MEDS: POLYETHYLENE GLYCOL 3350 17 GM POWDER PO SCH (09:57)
[2019-04-03] MEDS: Potassium Chloride Tab 10 MEQ TAB PO SCH (10:04)
[2019-04-03] MEDS: FUROSEMIDE 10 MG/1 ML - 2 ML VIAL IVP SCH (12:18)
[2019-04-03] MEDS: ACETAMINOPHEN 325 MG TABLET PO PRN ×2 (13:41→20:22)
[2019-04-03] MEDS: traZODone Tab 50 MG TAB PO SCH (20:21)
[2019-04-03] MEDS ORDERED: MELATONIN 5 MG TABLET PO PRN (21:01)
[2019-04-04] MEDS: LEVOTHYROXINE 75 MCG TABLET PO SCH (04:56)
[2019-04-04 05:11] LABS: BASOPHILS # (AUTO) 0.03 10*3/UL; BASOPHILS % (AUTO) 0.5 % (0-1); EOSINOPHILS # (AUTO) 0.29 10*3/UL; EOSINOPHILS % (AUTO) 4.6 % (0-8); Hematocrit [HCT] 29.9 % (42.0-52.0); Hemoglobin [HGB] 9.2 g/dL (14.0-18.0); LYMPHOCYTES # (AUTO) 1.05 10*3/uL; MEAN CORPUSCULAR HGB CONC 30.8 g/dL (33-37); MEAN PLATELET VOLUME 10.9 FL (7.4-12.2); MONOCYTES # (AUTO) 0.72 10*3/UL (0.3-0.8); MONOCYTES % (AUTO) 11.5 % (5-15); NEUTROPHILS # (AUTO) 4.15 10*3/UL; NEUTROPHILS % (AUTO) 66.4 % (50-80); RED BLOOD COUNT 3.02 10^6/uL (4.70-6.10)
[2019-04-04 05:15] LABS: PLATELET MORPHOLOGY COMMENT NORMAL MORPHOLOGY (NORM); RBC MORPHOLOGY COMMENT NORMAL MORPHOLOGY (NORM); WBC MORPHOLOGY COMMENT NORMAL MORPHOLOGY (NORM)
[2019-04-04 05:26] LABS: BLOOD UREA NITROGEN 18 mg/dL (7-22); BUN/CREATININE RATIO 16.36 (6-20)
[2019-04-04] MEDS: PANTOPRAZOLE 40 MG TABLET PO SCH ×2 (06:58→15:54)
[2019-04-04] MEDS: FUROSEMIDE 10 MG/1 ML - 2 ML VIAL IVP SCH ×2 (08:00→12:35)
[2019-04-04] MEDS: CALCITRIOL 0.25 MCG CAPSULE PO SCH (08:50)
[2019-04-04] MEDS: Potassium Chloride Tab 10 MEQ TAB PO SCH (08:53)
[2019-04-04] MEDS: ESCITALOPRAM 10 MG TABLET PO SCH (08:53)
[2019-04-04] MEDS: FERROUS SULFATE 325 MG TABLET PO SCH (08:54)
[2019-04-04] MEDS: FLUCONAZOLE 200 MG TABLET PO SCH (08:54)
[2019-04-04] MEDS: Insulin Detemir 300unit/3ml Flexpen SUBCUT SCH (08:55)
[2019-04-04] MEDS: Calcium/Vit D 600mg/400u Tab 1 TAB TABLET PO SCH (08:56)
[2019-04-04] MEDS: POLYETHYLENE GLYCOL 3350 17 GM POWDER PO SCH (09:02)
[2019-04-04] MEDS: ACETAMINOPHEN 325 MG TABLET PO PRN (15:54)
[2019-04-04] MEDS: traZODone Tab 50 MG TAB PO SCH (20:06)
[2019-04-05] MEDS: LEVOTHYROXINE 75 MCG TABLET PO SCH (05:17)
[2019-04-05] MEDS: ACETAMINOPHEN 325 MG TABLET PO PRN (05:24)
[2019-04-05 05:30] VITALS: O2SAT 96
[2019-04-05 07:06] VITALS: BP 151/58; TEMP 98.5
[2019-04-05] MEDS: FUROSEMIDE 10 MG/1 ML - 2 ML VIAL IVP SCH (07:08)
[2019-04-05] MEDS: PANTOPRAZOLE 40 MG TABLET PO SCH (07:08)
[2019-04-05 07:13] VITALS: RESP 25
[2019-04-05] MEDS: CALCITRIOL 0.25 MCG CAPSULE PO SCH (09:10)
[2019-04-05] MEDS: Potassium Chloride Tab 10 MEQ TAB PO SCH (09:10)
[2019-04-05] MEDS: FERROUS SULFATE 325 MG TABLET PO SCH (09:10)
[2019-04-05] MEDS: ESCITALOPRAM 10 MG TABLET PO SCH (09:10)
[2019-04-05] MEDS: FLUCONAZOLE 200 MG TABLET PO SCH (09:10)
[2019-04-05] MEDS: Calcium/Vit D 600mg/400u Tab 1 TAB TABLET PO SCH (09:10)
[2019-04-05] MEDS: POLYETHYLENE GLYCOL 3350 17 GM POWDER PO SCH (09:11)
[2019-04-05] MEDS: Insulin Detemir 300unit/3ml Flexpen SUBCUT SCH (09:11)
== END 2019-04-05 11:45 | DRG 872 ==
LOC: MED/SURG 11:05
PROVIDERS: ADMIT Internal Medicine; ATTEND Internal Medicine